=== PATIENT | female | born 1955 | race Caucasian/White ===

== ENCOUNTER 2016-07-14 06:58 | Emergency (ER) | payer OTHER ==
[~2016-07-14] VITALS: Ht 177.8 cm; Wt 80.0 kg
[~2016-07-14 06:58] MED LIST: DOXA1 PO; GALA12TA6 PO; MEMA5 PO; REME15TA PO; RISP1TAB2 PO; SYNT25TA PO
[2016-07-14 07:00] VITALS: BP 118/82; PULSE 86; RESP 16; TEMP 97.6
[2016-07-14] MEDS ORDERED: SODIUM CHLOR 0.9% 1000 ML INJ 1,000 ML IV SCH (07:06)
--- NOTE | 2016-07-14 07:12 | PD ---
HPI Chief Complaint: Altered Mental Status Time Seen by Provider: 07:04 Travel History International Travel<30 days: No Contact w/Intl Traveler<30days: No Traveled to known affect area: No History of Present Illness HPI Patient is a 61-year-old female who presents to emergency room for altered mental status. As per EMS, patient has history of Alzheimer's dementia, patient did have a recent change in her medications as she recently had all her medications increased. Patient unable to provide history of present illness this time, she is only alert to person at this time. As per EMS, patient was not found to be acting herself and has been acting differently. No family at bedside at this time, is on his way to the ER. PFSH Past Medical History Alzheimer's Disease: Yes (stage 3) Arthritis: No Asthma: No Autoimmune Disease: No Blood Disorders: No Bipolar Disorder: Yes Anxiety: Yes Depression: Yes Heart Rhythm Problems: No Cancer: Yes (OVARIAN AND UTERUS) Cardiac Catheterization: No Cardiovascular Problems: No High Cholesterol: No Chemotherapy: No Congestive Heart Failure: No COPD: No Cerebrovascular Accident: No Dementia: Yes Diabetes: No Diminished Hearing: No GERD: Yes Glaucoma: No Hepatitis: No Hiatal Hernia: Yes Hypertension: Yes Kidney Stones: No Neurologic: Yes (RETROGRADE AMNESIA) Psychiatric: Yes Myocardial Infarction: No Radiation Therapy: No Renal Failure: No Seizures: Yes (LAST SEIZURE ) Sleep Apnea: No Ulcer: No Menopausal: Yes Past Surgical History AICD: No Cholecystectomy: Yes (DOESN'T KNOW DATE) Coronary Artery Bypass Graft: No Genitourinary Surgery: No Hysterectomy: Yes Pacemaker: No Other Surgery: No Social History Alcohol Use: No Tobacco Use: Yes (quit 1999) Substance Use: No Allergies-Medications (Allergen,Severity, Reaction): Coded Allergies: Coconut (Unverified Allergy, Severe, SWELLING OF THROAT, 12/05/14) Reported Meds & Prescriptions Reported Meds & Active Scripts Active Reported Trazodone (Trazodone HCl) 100 Mg Tab 200 Mg PO TID Tamsulosin (Tamsulosin HCl) 0.4 Mg Cap 0.4 Mg PO HS Olanzapine 10 Mg Tab 10 Mg PO HS Memantine 10 Mg Tab 10 Mg PO BID Levothyroxine (Levothyroxine Sodium) 150 Mcg Tab 150 Mcg PO DAILY Galantamine (Galantamine Hydrobromide) 12 Mg Tab 16 Mg PO BID D3-1000 (Cholecalciferol) 1,000 Unit Cap Carbamazepine 200 Mg Tab 200 Mg PO BID Buspirone (Buspirone HCl) 30 Mg Tab 30 Mg PO BID Review of Systems ROS Limitations: Altered Mental Status Physical Exam Exam Limitations: Altered Mental Status Narrative GENERAL: NAD SKIN: Focused skin assessment warm/dry. HEAD: Atraumatic. Normocephalic. EYES: Pupils equal and round. No scleral icterus. No injection or drainage. ENT: No nasal bleeding or discharge. Mucous membranes pink and moist. NECK: Trachea midline. No JVD. CARDIOVASCULAR: Regular rate and rhythm. No murmur appreciated. RESPIRATORY: No accessory muscle use. Clear to auscultation. Breath sounds equal bilaterally. GASTROINTESTINAL: Abdomen soft, non-tender, nondistended. Hepatic and splenic margins not palpable. MUSCULOSKELETAL: No obvious deformities. No clubbing. No cyanosis. No edema. NEUROLOGICAL: Awake and alert. Normal speech. PSYCHIATRIC: Patient confused, alert only to person Data Data Last Documented VS Vital Signs Date Time Temp Pulse Resp B/P Pulse Ox O2 Delivery O2 Flow Rate FiO2 07/14/16 07:05 97 Room Air 07/14/16 07:00 97.6 86 16 118/82 Orders Electrocardiogram (07/14/16 07:06) Complete Blood Count With Diff (07/14/16 07:06) Comprehensive Metabolic Panel (07/14/16 07:06) Creatine Kinase (Cpk) (07/14/16 07:06) Prothrombin Time / Inr (Pt) (07/14/16 07:06) Act Partial Throm Time (Ptt) (07/14/16 07:06) Troponin I (07/14/16 07:06) Urinalysis - C+S If Indicated (07/14/16 07:06) Chest, Single Ap (07/14/16 07:06) Blood Glucose (07/14/16 07:06) Ecg Monitoring (07/14/16 07:06) Iv Access Insert/Monitor (07/14/16 07:06) Cath For Specimen (07/14/16 07:06) Oximetry (07/14/16 07:06) Sodium Chloride 0.9% Flush (Ns Flush) (07/14/16 07:15) Sodium Chlor 0.9% 1000 Ml Inj (Ns 1000 M (07/14/16 07:06) Drug Screen, Random Urine (07/14/16 07:06) Lorazepam (Ativan) (07/14/16 07:45) Labs Laboratory Tests Test 07/14/16 07:15 White Blood Count 5.3 TH/MM3 Red Blood Count 4.09 MIL/MM3 Hemoglobin 12.4 GM/DL Hematocrit 35.9 % Mean Corpuscular Volume 87.8 FL Mean Corpuscular Hemoglobin 30.3 PG Mean Corpuscular Hemoglobin 34.5 % Concent Red Cell Distribution Width 14.0 % Platelet Count 166 TH/MM3 Mean Platelet Volume 8.7 FL Neutrophils (%) (Auto) 76.1 % Lymphocytes (%) (Auto) 14.7 % Monocytes (%) (Auto) 7.8 % Eosinophils (%) (Auto) 0.8 % Basophils (%) (Auto) 0.6 % Neutrophils # (Auto) 4.1 TH/MM3 Lymphocytes # (Auto) 0.8 TH/MM3 Monocytes # (Auto) 0.4 TH/MM3 Eosinophils # (Auto) 0.0 TH/MM3 Basophils # (Auto) 0.0 TH/MM3 CBC Comment DIFF FINAL Differential Comment Prothrombin Time 10.6 SEC Prothromb Time International 1.0 RATIO Ratio Activated Partial 27.1 SEC Thromboplast Time Urine Color YELLOW Urine Turbidity CLEAR Urine pH 6.5 Urine Specific [place] 1.022 Urine Protein NEG mg/dL Urine Glucose (UA) NEG mg/dL Urine Ketones NEG mg/dL Urine Occult Blood NEG Urine Nitrite NEG Urine Bilirubin NEG Urine Urobilinogen LESS THAN 2.0 MG/DL Urine Leukocyte Esterase NEG Urine RBC 1 /hpf Urine WBC 1 /hpf Urine Squamous Epithelial 2 /hpf Cells Urine Mucus FEW /lpf Microscopic Urinalysis Comment CATH-CULT NOT IND Sodium Level 141 MEQ/L Potassium Level 3.4 MEQ/L Chloride Level 105 MEQ/L Carbon Dioxide Level 29.1 MEQ/L Anion Gap 7 MEQ/L Blood Urea Nitrogen 11 MG/DL Creatinine 0.93 MG/DL Estimat Glomerular Filtration 61 ML/MIN Rate Random Glucose 119 MG/DL Calcium Level 8.8 MG/DL Total Bilirubin 0.3 MG/DL Aspartate Amino Transf 11 U/L (AST/SGOT) Alanine Aminotransferase 26 U/L (ALT/SGPT) Alkaline Phosphatase 84 U/L Total Creatine Kinase 32 U/L Troponin I LESS THAN 0.02 NG/ML Total Protein 6.7 GM/DL Albumin 3.6 GM/DL Urine Opiates Screen NEG Urine Barbiturates Screen NEG Urine Amphetamines Screen NEG Urine Benzodiazepines Screen NEG Urine Cocaine Screen NEG Urine Cannabinoids Screen NEG MDM Medical Decision Making Medical Screen Exam Complete: Yes Emergency Medical Condition: Yes Interpretation(s) Vital Signs Date Time Temp Pulse Resp B/P Pulse Ox O2 Delivery O2 Flow Rate FiO2 07/14/16 07:05 97 Room Air 07/14/16 07:00 97.6 86 16 118/82 Differential Diagnosis Altered mental status could be secondary to electrolyte abnormality, infection including but not limited to UTI, pneumonia, ACS, intracranial pathology, progressing dementia Narrative Course Patient is a 61-year-old female who presents to emergency room for evaluation of altered mental status. Patient was brought to the emergency room by EMS from home, reports history of Alzheimer's dementia, reports that she has not been acting like her normal self for an unknown period of time. Patient unable to provide history of present illness this time. Vital signs are stable. Patient was placed on a cranberry sorter upon arrival to the emergency room. Labs as well as EKG ordered for evaluation of altered mental status. Plan to talk to patient's for more information once he arrives to the emergency room 0800: Patient's now at bedside, reports that she has stage III Alzheimer 's dementia which has been progressing since April. [facility], reports that after a trial of these medications, they did not have any effect on her. Reports that in mid June, all her medications [facility] by [facility]. Patient's is concerned as these medications have not helped her symptoms and patients agitation is not getting any better. Reports "she keeps clapping and hitting herself, I am just worried that the medicines aren't helping her." Patient's has considered assisted living and reports that "I just want her comfortable at home and I just want her to be safe." Reports that her progression of dementia is unchanged since April and patient is at her baseline mental status. Patient's reports "I'm just frustrated and need help calming her down." Vital Signs Date Time Temp Pulse Resp B/P Pulse Ox O2 Delivery O2 Flow Rate FiO2 07/14/16 07:05 97 Room Air 07/14/16 07:00 97.6 86 16 118/82 Last Impressions Chest X-Ray 07/14/16 0706 Signed Impressions: Service Date/Time: Thursday, July 14, 2016 07:21 - CONCLUSION: No acute disease. There is no evidence of free air. Rinku Bose MD CBC & BMP Diagram 07/14/16 07:15 Patient much calmer after Ativan administered. requests the patient be discharged to home under his care for the prescription for ativan as this seems to help calm her down. Patient will follow-up with her primary care doctor on Saturday, she will return to emergency room as needed Diagnosis Primary Impression: Dementia Additional Impression: Agitation Patient Instructions: General Instructions Additional Instructions: Please provide patient with a copy of her lab work at discharge Please call your primary care doctor first thing in the morning for earliest follow-up appointment Med/Other Pt SpecificInfo: Prescription(s) given Scripts Alprazolam (Xanax)0.5 Mg Tab0.5 Mg PO Q8H PRN (ANXIETY) #10 TAB Ref 0 Prov:Melissa Meza DO 07/14/16 Disposition: 01 DISCHARGE HOME Condition: Stable Melissa Meza DO July 14, 2016 07:12
[2016-07-14] MEDS ORDERED: SODIUM CHLORIDE 0.9% FLUSH 10 ML FLUSH IVF PRN (07:15)
--- NOTE | 2016-07-14 07:30 | RADRPT ---
EXAM DATE/TIME: 07/14/2016 07:21 [facility] COMPARISON: No previous studies available for comparison. INDICATIONS : Chest pain. MEDICAL HISTORY : Alzheimer's seizures. SURGICAL HISTORY : Hysterectomy. ENCOUNTER: Initial ACUITY: 1 day PAIN SCORE: Non-responsive. LOCATION: Bilateral chest FINDINGS: A single view of the chest demonstrates the lungs to be symmetrically aerated without evidence of mas s, infiltrate or effusion. The cardiomediastinal contours are unremarkable. Osseous structures are intact. There is no evidence of free air. The patient is mildly rotated. CONCLUSION: No acute disease. There is no evidence of free air. Rinku Bose MD on July 14, 2016 at 7:28 Board Certified Radiologist. This report was verified electronically.
[2016-07-14 07:39] LABS: AUTOMATED NEUTROPHIL # 4.1 TH/MM3 (1.8-7.7); BASOPHIL % 0.6 % (0.0-2.0); EOSINOPHIL % 0.8 % (0.0-4.0); HEMATOCRIT 35.9 % (35.0-46.0); HEMO FLAGS DIFF FINAL; LYMPH % 14.7 % (9.0-44.0); LYMPHOCYTE # 0.8 TH/MM3 (1.0-4.8); MEAN CELL VOLUME 87.8 FL (80.0-100.0); MEAN CORPUSCULAR HEMOGLOBIN 30.3 PG (27.0-34.0); MEAN CORPUSCULAR HGB CONC 34.5 % (32.0-36.0); MONO % 7.8 % (0.0-8.0); NEUT % 76.1 % (16.0-70.0); PLATELET COUNT 166 TH/MM3 (150-450); RED BLOOD COUNT 4.09 MIL/MM3 (4.00-5.30); WHITE BLOOD COUNT 5.3 TH/MM3 (4.0-11.0)
[2016-07-14] MEDS ORDERED: LORazepam 1 MG TAB PO ONE (07:45)
[2016-07-14 07:49] LABS: APTT (PATIENT) 27.1 SEC (24.3-30.1); PROTHROMBIN TIME - PATIENT 10.6 SEC (9.8-11.6)
[2016-07-14 07:52] LABS: ALT (GPT) 26 U/L (10-53); ANION GAP 7 MEQ/L (5-15); AST (GOT) 11 U/L (15-37); BICARBONATE 29.1 MEQ/L (21.0-32.0); BLOOD UREA NITROGEN 11 MG/DL (7-18); BLOOD, URINE NEG (NEG); CHLORIDE 105 MEQ/L (98-107); COMMENT (UR) CATH-CULT NOT IND; CULTURE IF INDICATED CATH CULTURE NOT IND; GLOMERULAR FILTRATION RATE 61 ML/MIN (>89); GLUCOSE,URINE NEG (NEG); KETONE, URINE NEG (NEG); MUCUS URINE FEW /lpf (OCC); NITRITE,URINE NEG (NEG); PH, URINE 6.5 (5.0-8.5); POTASSIUM 3.4 MEQ/L (3.5-5.1); SODIUM (NA) 141 MEQ/L (136-145); SQUAMOUS EPITHELIAL CELL URINE 2 /hpf (0-5); URINE COLOR YELLOW (YELLW/STRAW)
[2016-07-14 08:07] LABS: ALKALINE PHOSPHATASE 84 U/L (45-117); TOTAL BILIRUBIN ADULT 0.3 MG/DL (0.2-1.0)
[2016-07-14 08:09] LABS: CREATINE KINASE 32 U/L (26-192)
[2016-07-14] MEDS ORDERED: OLAN10TA PO (08:09)
[2016-07-14] MEDS ORDERED: CHOL1CAP32 (08:09)
[2016-07-14] MEDS ORDERED: BUSP30TA PO (08:09)
[2016-07-14] MEDS ORDERED: CARB200T PO (08:09)
[2016-07-14] MEDS ORDERED: TAMS0.4C4 PO (08:09)
[2016-07-14] MEDS ORDERED: TRAZ100T4 PO (08:09)
[2016-07-14] MEDS ORDERED: MEMA1TAB2 PO (08:09)
[2016-07-14] MEDS ORDERED: GALA12TA PO (08:09)
[2016-07-14] MEDS ORDERED: LEVO150T7 PO (08:09)
[2016-07-14 08:26] LABS: AMPHETAMINE, URINE NEG (NEG); BARBITURATES, URINE NEG (NEG); COCAINE, URINE NEG (NEG)
[2016-07-14] MEDS ORDERED: ALPR.5 PO (09:18)
[2016-07-14 09:42] VITALS: BP 115/61; PULSE 80; RESP 16
== END 2016-07-14 09:44 | disposition home or self-care (01) ==
LOC: NEPE 06:58
DX: G30.9 Alzheimer's disease, unspecified (principal); F02.81 Dementia in other diseases classified elsewhere, unspecified severity, with behavioral disturbance; I10 Essential (primary) hypertension; R07.9 Chest pain, unspecified; Z79.899 Other long term (current) drug therapy; Z87.891 Personal history of nicotine dependence
CPT/HCPCS: 71010; 80053; 80307; 81001; 82550; 84484; 85025; 85610; 85730; 99285; J7030; P9612

== ENCOUNTER 2016-07-16 15:36 | Inpatient (IN) | payer OTHER ==
[~2016-07-16] VITALS: Ht 185.4 cm; Wt 73.4 kg
[~2016-07-16 15:36] MED LIST changes: +ALPR.5 PO; +BUSP30TA PO; +CARB200T PO; +CHOL1CAP32; -DOXA1 PO; +GALA12TA PO; -GALA12TA6 PO; +LEVO150T7 PO; +MEMA1TAB2 PO; -MEMA5 PO; +OLAN10TA PO; -REME15TA PO; -RISP1TAB2 PO; -SYNT25TA PO; +TAMS0.4C4 PO; +TRAZ100T4 PO
[2016-07-16 15:40] VITALS: BP 166/100; PULSE 90; RESP 18; TEMP 98.6; O2SAT 98
--- NOTE | 2016-07-16 15:55 | PD ---
HPI Chief Complaint: altered mental status Time Seen by Provider: 15:48 Travel History International Travel<30 days: No Contact w/Intl Traveler<30days: No Traveled to known affect area: No History of Present Illness HPI The patient is a 61-year-old female who presents to the emergency department via EMS as a Mclean act. The patient apparently has a history of dementia with progressive symptoms over the last several months. The patient was evaluated in the emergency department several days ago where she had a liver in workup which was negative. The patient is currently on multiple dementia and antipsychotic medications including Donepezil, Memantine, mirtazapine, and Seroquel. According to the Mclean act the patient has been increasingly agitated and striking herself, appears to be a threat to herself. The patient currently lives at home with her who appears unable to take care of the patient secondary to her increasing dementia. Upon arrival the patient will follow commands, is oriented to person, but cannot answer other questions are provide any insight to her current situation. PFSH Past Medical History Alzheimer's Disease: Yes (stage 3) Arthritis: No Asthma: No Autoimmune Disease: No Blood Disorders: No Bipolar Disorder: Yes Anxiety: Yes Depression: Yes Heart Rhythm Problems: No Cancer: Yes (OVARIAN AND UTERUS) Cardiac Catheterization: No Cardiovascular Problems: No High Cholesterol: No Chemotherapy: No Congestive Heart Failure: No COPD: No Cerebrovascular Accident: No Dementia: Yes Diabetes: No Diminished Hearing: No GERD: Yes Glaucoma: No Hepatitis: No Hiatal Hernia: Yes Hypertension: Yes Kidney Stones: No Neurologic: Yes (RETROGRADE AMNESIA) Psychiatric: Yes Myocardial Infarction: No Radiation Therapy: No Renal Failure: No Seizures: Yes (LAST SEIZURE ) Sleep Apnea: No Ulcer: No Menopausal: Yes Past Surgical History AICD: No Cholecystectomy: Yes (DOESN'T KNOW DATE) Coronary Artery Bypass Graft: No Genitourinary Surgery: No Hysterectomy: Yes Pacemaker: No Other Surgery: No Social History Tobacco Use: No Allergies-Medications (Allergen,Severity, Reaction): Coded Allergies: Coconut (Unverified Allergy, Severe, SWELLING OF THROAT, 07/16/16) Reported Meds & Prescriptions Reported Meds & Active Scripts Active Cipro (Ciprofloxacin HCl) 500 Mg Tab 500 Mg PO BID 7 Days Xanax (Alprazolam) 0.5 Mg Tab 0.5 Mg PO Q8H PRN Reported Trazodone (Trazodone HCl) 100 Mg Tab 200 Mg PO TID Tamsulosin (Tamsulosin HCl) 0.4 Mg Cap 0.4 Mg PO HS Olanzapine 10 Mg Tab 10 Mg PO HS Memantine 10 Mg Tab 10 Mg PO BID Levothyroxine (Levothyroxine Sodium) 150 Mcg Tab 150 Mcg PO DAILY Galantamine (Galantamine Hydrobromide) 12 Mg Tab 16 Mg PO BID D3-1000 (Cholecalciferol) 1,000 Unit Cap Carbamazepine 200 Mg Tab 200 Mg PO BID Buspirone (Buspirone HCl) 30 Mg Tab 30 Mg PO BID Review of Systems ROS Limitations: Altered Mental Status, Poor Historian Except as stated in HPI: all other systems reviewed are Neg Neurologic: Positive: Change in Mentation Physical Exam Exam Limitations: Altered Mental Status Narrative GENERAL: Awake, alert, 61-year-old female who appears her stated age and is in no acute respiratory distress. SKIN: Focused skin assessment warm/dry. HEAD: Atraumatic. Normocephalic. EYES: Pupils equal and round. Pupils are 4 mm bilateral and reactive. ENT: No nasal bleeding or discharge. Mucous membranes pink and moist. NECK: Trachea midline. No JVD. CARDIOVASCULAR: Regular rate and rhythm. No murmur appreciated. RESPIRATORY: No accessory muscle use. Clear to auscultation. Breath sounds equal bilaterally. GASTROINTESTINAL: Abdomen soft, non-tender, nondistended. No rebound tenderness. MUSCULOSKELETAL: No obvious deformities. No clubbing. No cyanosis. No edema. NEUROLOGICAL: Awake and alert. No obvious cranial nerve deficits. Moves all 4 extremities. Oriented to person but cannot answer other questions or provide any insight. Will follow simple commands. PSYCHIATRIC: Appears demented. Data Data Last Documented VS Vital Signs Date Time Temp Pulse Resp B/P Pulse Ox O2 Delivery O2 Flow Rate FiO2 07/16/16 17:59 82 18 121/59 98 Room Air 07/16/16 15:40 98.6 Orders Complete Blood Count With Diff (07/16/16 15:48) Comprehensive Metabolic Panel (07/16/16 15:48) Thyroid Stimulating Hormone (07/16/16 15:48) Urinalysis - C+S If Indicated (07/16/16 15:48) Psych Screen (07/16/16 15:48) Lorazepam Inj (Ativan Inj) (07/16/16 16:00) Drug Screen, Random Urine (07/16/16 15:48) Alcohol (Ethanol) (07/16/16 15:48) Ct Brain W/O Iv Contrast(Rout) (07/16/16 ) Sodium Chlorid 0.9% 500 Ml Inj (Ns 500 M (07/16/16 16:00) Urine Culture (07/16/16 16:15) Ciprofloxacin 400 Mg Premix (Cipro 400 M (07/16/16 17:45) Carbamazepine (Tegretol) (07/16/16 17:39) Labs Laboratory Tests Test 07/16/16 16:15 White Blood Count 9.0 TH/MM3 Red Blood Count 4.28 MIL/MM3 Hemoglobin 12.7 GM/DL Hematocrit 37.3 % Mean Corpuscular Volume 87.3 FL Mean Corpuscular Hemoglobin 29.7 PG Mean Corpuscular Hemoglobin 34.0 % Concent Red Cell Distribution Width 13.9 % Platelet Count 208 TH/MM3 Mean Platelet Volume 9.3 FL Neutrophils (%) (Auto) 70.0 % Lymphocytes (%) (Auto) 20.1 % Monocytes (%) (Auto) 8.6 % Eosinophils (%) (Auto) 0.5 % Basophils (%) (Auto) 0.8 % Neutrophils # (Auto) 6.3 TH/MM3 Lymphocytes # (Auto) 1.8 TH/MM3 Monocytes # (Auto) 0.8 TH/MM3 Eosinophils # (Auto) 0.0 TH/MM3 Basophils # (Auto) 0.1 TH/MM3 CBC Comment DIFF FINAL Differential Comment Urine Color YELLOW Urine Turbidity HAZY Urine pH 6.0 Urine Specific [place] 1.028 Urine Protein TRACE mg/dL Urine Glucose (UA) NEG mg/dL Urine Ketones NEG mg/dL Urine Occult Blood NEG Urine Nitrite NEG Urine Bilirubin NEG Urine Urobilinogen LESS THAN 2.0 MG/DL Urine Leukocyte Esterase LARGE Urine RBC 5 /hpf Urine WBC 44 /hpf Urine Squamous Epithelial 1 /hpf Cells Urine Bacteria OCC /hpf Microscopic Urinalysis Comment CULTURE INDICATED Sodium Level 144 MEQ/L Potassium Level 4.1 MEQ/L Chloride Level 107 MEQ/L Carbon Dioxide Level 30.0 MEQ/L Anion Gap 7 MEQ/L Blood Urea Nitrogen 14 MG/DL Creatinine 1.02 MG/DL Estimat Glomerular Filtration 55 ML/MIN Rate Random Glucose 105 MG/DL Calcium Level 9.2 MG/DL Total Bilirubin 0.4 MG/DL Aspartate Amino Transf 34 U/L (AST/SGOT) Alanine Aminotransferase 58 U/L (ALT/SGPT) Alkaline Phosphatase 99 U/L Total Protein 7.2 GM/DL Albumin 4.1 GM/DL Thyroid Stimulating Hormone 2.940 uIU/ML 3rd Gen Urine Opiates Screen NEG Urine Barbiturates Screen NEG Carbamazepine (Tegretol) Level 9.4 MCG/ML Urine Amphetamines Screen NEG Urine Benzodiazepines Screen POS Urine Cocaine Screen NEG Urine Cannabinoids Screen NEG Ethyl Alcohol Level LESS THAN 3 MG/DL MDM Medical Decision Making Medical Screen Exam Complete: Yes Emergency Medical Condition: Yes Medical Record Reviewed: Yes Interpretation(s) Last Impressions Head CT 07/16/16 0000 Signed Impressions: Service Date/Time: Saturday, July 16, 2016 17:37 - CONCLUSION: Generalized atrophy advanced for age. Stable evaluation without evidence of acute infarct, hemorrhage, mass or edema. Fredy Rhodes MD Laboratory Tests Test 07/16/16 16:15 White Blood Count 9.0 TH/MM3 Red Blood Count 4.28 MIL/MM3 Hemoglobin 12.7 GM/DL Hematocrit 37.3 % Mean Corpuscular Volume 87.3 FL Mean Corpuscular Hemoglobin 29.7 PG Mean Corpuscular Hemoglobin 34.0 % Concent Red Cell Distribution Width 13.9 % Platelet Count 208 TH/MM3 Mean Platelet Volume 9.3 FL Neutrophils (%) (Auto) 70.0 % Lymphocytes (%) (Auto) 20.1 % Monocytes (%) (Auto) 8.6 % Eosinophils (%) (Auto) 0.5 % Basophils (%) (Auto) 0.8 % Neutrophils # (Auto) 6.3 TH/MM3 Lymphocytes # (Auto) 1.8 TH/MM3 Monocytes # (Auto) 0.8 TH/MM3 Eosinophils # (Auto) 0.0 TH/MM3 Basophils # (Auto) 0.1 TH/MM3 CBC Comment DIFF FINAL Differential Comment Urine Color YELLOW Urine Turbidity HAZY Urine pH 6.0 Urine Specific [place] 1.028 Urine Protein TRACE mg/dL Urine Glucose (UA) NEG mg/dL Urine Ketones NEG mg/dL Urine Occult Blood NEG Urine Nitrite NEG Urine Bilirubin NEG Urine Urobilinogen LESS THAN 2.0 MG/DL Urine Leukocyte Esterase LARGE Urine RBC 5 /hpf Urine WBC 44 /hpf Urine Squamous Epithelial 1 /hpf Cells Urine Bacteria OCC /hpf Microscopic Urinalysis Comment CULTURE INDICATED Sodium Level 144 MEQ/L Potassium Level 4.1 MEQ/L Chloride Level 107 MEQ/L Carbon Dioxide Level 30.0 MEQ/L Anion Gap 7 MEQ/L Blood Urea Nitrogen 14 MG/DL Creatinine 1.02 MG/DL Estimat Glomerular Filtration 55 ML/MIN Rate Random Glucose 105 MG/DL Calcium Level 9.2 MG/DL Total Bilirubin 0.4 MG/DL Aspartate Amino Transf 34 U/L (AST/SGOT) Alanine Aminotransferase 58 U/L (ALT/SGPT) Alkaline Phosphatase 99 U/L Total Protein 7.2 GM/DL Albumin 4.1 GM/DL Thyroid Stimulating Hormone 2.940 uIU/ML 3rd Gen Ethyl Alcohol Level LESS THAN 3 MG/DL Differential Diagnosis Differential diagnosis includes advancing dementia, Alzheimer's, delirium, UTI, dehydration, subdural hemorrhage, normal pressure hydrocephalus, B-12 deficiency , heavy metal toxicity, hyponatremia, hypercalcemia. Narrative Course IV was established, labs are drawn and sent, and the patient was placed on cardiac telemetry monitoring and continuous pulse oximetry monitoring. I reviewed the patient's workup from several days ago she had a negative workup including CBC, CMP, and UA. I added a CT of the brain to rule out subdural hemorrhage. However, patient is nonfocal and I believe this may be secondary to advancing dementia with delirium, possibly secondary to medication side effects. CBC and CMP are unremarkable. UA is positive with 44 WBCs, therefore , patient was administered Cipro 400 mg intravenously. Patient will be prescribed Cipro 500 milligrams twice a day for [address] the brain reveals atrophy, no acute findings. Patient is medically cleared to be evaluated by psychiatry. Diagnosis Primary Impression: Dementia Qualified Code: F03.91 - Dementia with behavioral disturbance, unspecified dementia type Additional Impressions: UTI (urinary tract infection) Qualified Code: N39.0 - Urinary tract infection without hematuria, site unspecified Delirium Med/Other Pt SpecificInfo: Prescription(s) given Scripts Ciprofloxacin (Cipro)500 Mg Gmc709 Mg PO BID 7 Days Ref 0 Prov:Blue Ko MD 07/16/16 Condition: Stable Blue Ko MD July 16, 2016 15:55
[2016-07-16] MEDS ORDERED: SODIUM CHLORID 0.9% 500 ML INJ 500 ML IV ONE (16:00)
[2016-07-16] MEDS ORDERED: LORazepam 2 MG/ML VIAL IV ONE (16:00)
[2016-07-16 16:54] LABS: AUTOMATED NEUTROPHIL # 6.3 TH/MM3 (1.8-7.7); BASOPHIL # 0.1 TH/MM3 (0-0.2); BASOPHIL % 0.8 % (0.0-2.0); EOSINOPHIL % 0.5 % (0.0-4.0); HEMATOCRIT 37.3 % (35.0-46.0); HEMO FLAGS DIFF FINAL; LYMPH % 20.1 % (9.0-44.0); LYMPHOCYTE # 1.8 TH/MM3 (1.0-4.8); MEAN CELL VOLUME 87.3 FL (80.0-100.0); MEAN CORPUSCULAR HEMOGLOBIN 29.7 PG (27.0-34.0); MONO % 8.6 % (0.0-8.0); PLATELET COUNT 208 TH/MM3 (150-450); RED BLOOD COUNT 4.28 MIL/MM3 (4.00-5.30); RED CELL DISTRIBUTION WIDTH 13.9 % (11.6-17.2)
[2016-07-16 17:03] LABS: BACTERIA, URINE OCC /hpf; BLOOD, URINE NEG (NEG); COMMENT (UR) CULTURE INDICATED; CULTURE IF INDICATED CULTURE INDICATED; GLUCOSE,URINE NEG (NEG); KETONE, URINE NEG (NEG); NITRITE,URINE NEG (NEG); SQUAMOUS EPITHELIAL CELL URINE 1 /hpf (0-5); URINE COLOR YELLOW (YELLW/STRAW)
[2016-07-16 17:35] LABS: ALKALINE PHOSPHATASE 99 U/L (45-117); ALT (GPT) 58 U/L (10-53); ANION GAP 7 MEQ/L (5-15); AST (GOT) 34 U/L (15-37); BLOOD UREA NITROGEN 14 MG/DL (7-18); CHLORIDE 107 MEQ/L (98-107); GLOMERULAR FILTRATION RATE 55 ML/MIN (>89); POTASSIUM 4.1 MEQ/L (3.5-5.1); SODIUM (NA) 144 MEQ/L (136-145); TOTAL BILIRUBIN ADULT 0.4 MG/DL (0.2-1.0)
[2016-07-16] MEDS ORDERED: CIPR-9 PO (17:39)
[2016-07-16] MEDS ORDERED: CIPROFLOXACIN 400 MG PREMIX 200 ML IV ONE (17:45)
[2016-07-16 17:46] LABS: AMPHETAMINE, URINE NEG (NEG); BARBITURATES, URINE NEG (NEG); COCAINE, URINE NEG (NEG)
[2016-07-16 17:59] VITALS: BP 121/59; PULSE 82; RESP 18; O2SAT 98
--- NOTE | 2016-07-16 18:07 | RADRPT ---
EXAM DATE/TIME: 07/16/2016 17:37 [facility] COMPARISON: CT BRAIN W/O CONTRAST, December 05, 2014, 19:00. INDICATIONS : Altered mental status RADIATION DOSE: 56.35 CTDIvol (mGy) MEDICAL HISTORY : Dementia. Seizures. Hypertension.Renal disease uterin ca SURGICAL HISTORY : Cholecystectomy. Hysterectomy. ENCOUNTER: Initial ACUITY: 1 day PAIN SCALE: Non-responsive LOCATION: cranial TECHNIQUE: Multiple contiguous axial images were obtained of the head. Using automated exposure control and adj ustment of the mA and/or kV according to patient size, radiation dose was kept as low as reasonably a chievable to obtain optimal diagnostic quality images. FINDINGS: There is marked central and cortical atrophy with dilatation of ventricular and sulcal spaces. There is no parenchymal hemorrhage, acute infarction or mass lesion identified. There are no extra-axial fluid collections appreciated. The posterior fossa is unremarkable with midline fourth ventricle. T he portion of the orbits and paranasal sinuses visualized are unremarkable. CONCLUSION: Generalized atrophy advanced for age. Stable evaluation without evidence of acute infarct, hemorrhage, mass or edema. Fredy Rhodes MD on July 16, 2016 at 18:04 Board Certified Radiologist. This report was verified electronically.
[2016-07-17] MEDS ORDERED: MAGNESIUM HYDROXIDE SUSP 30 ML CUP PO PRN (09:00)
[2016-07-17] MEDS ORDERED: ACETAMINOPHEN 325 MG TAB PO PRN (09:00)
[2016-07-17] MEDS ORDERED: ALUMINUM/MAGNESIUM/SIMETH 30 ML CUP PO PRN (09:00)
[2016-07-17] MEDS ORDERED: LORazepam 2 MG/ML VIAL IM PRN ×2 (09:00)
[2016-07-17] MEDS ORDERED: LORazepam 0.5 MG TAB PO PRN (09:00)
[2016-07-17] MEDS: REMOVE OLD PATCH T-DERMAL SCH (10:00)
[2016-07-17] MEDS: NICOTINE 21 MG/24 HR PATCH T-DERMAL SCH (10:00)
--- NOTE | 2016-07-17 11:22 | PD.CONS ---
HPI Service [facility] Consult Requested By Psychiatry, Dr. Montemayor Reason for Consult Medical management Primary Care Physician [facility] Diagnoses: History of Present Illness Patient is a 61-year-old female with primary medical history of Alzheimer's disease stage III, bipolar disorder, anxiety, depression, dementia, seizure disorder, retrograde amnesia, hypothyroidism, hiatal hernia, GERD who came into the hospital for altered mental status. As per review of records, patient's medications has been changed increase. As per record, [facility] has been [facility], reports that after a trial of these medications, they did not have any effect on her. Reports that in mid June, all her medications were increased by the [place]. Patient's is concerned as these medications have not helped her symptoms and patients agitation is not getting any better. Reports "she keeps clapping and hitting herself, I am just worried that the medicines aren't helping her." Patient's has considered assisted living and reports that "I just want her comfortable at home and I just want her to be safe." Reports that her progression of dementia is unchanged since April and patient is at her baseline mental status. Patient's reports "I'm just frustrated and need help calming her down." Patient seen and examined today. Confuse, unable to make intelligible conversations. Unable to obtain any medical history or surgical history. All history or based on chart review. Patient is restless during exam, clapping and screaming at the same time. Review of Systems ROS Limitations: Altered Mental Status, Poor Historian Past Family Social History Allergies: Coded Allergies: Coconut (Unverified Allergy, Severe, SWELLING OF THROAT, 07/16/16) Past Medical History Chart reviewed Ovarian uterine cancer HTN Dementia Alzheimer's stageIII Retrograde amnesia Seizure Anxiety Depression Bipolar disorder Hiatal hernia GERD Hypothyroidism Past Surgical History Chart reviewed Cholecystectomy Hysterectomy Reported Medications Reported Meds & Active Scripts Active Cipro (Ciprofloxacin HCl) 500 Mg Tab 500 Mg PO BID 7 Days Xanax (Alprazolam) 0.5 Mg Tab 0.5 Mg PO Q8H PRN Reported Trazodone (Trazodone HCl) 100 Mg Tab 200 Mg PO TID Tamsulosin (Tamsulosin HCl) 0.4 Mg Cap 0.4 Mg PO HS Olanzapine 10 Mg Tab 10 Mg PO HS Memantine 10 Mg Tab 10 Mg PO BID Levothyroxine (Levothyroxine Sodium) 150 Mcg Tab 150 Mcg PO DAILY Galantamine (Galantamine Hydrobromide) 12 Mg Tab 16 Mg PO BID D3-1000 (Cholecalciferol) 1,000 Unit Cap Carbamazepine 200 Mg Tab 200 Mg PO BID Buspirone (Buspirone HCl) 30 Mg Tab 30 Mg PO BID Active Ordered Medications Current Medications Medications (Trade) Dose Ordered Sig/Ricardo Route Start Time Stop Time Status Last Admin (Ativan) 1 mg Q6H PRN PO 07/17/16 09:00 (Ativan Inj) 1 mg Q6H PRN IM 07/17/16 09:00 (Tylenol) 650 mg Q4H PRN PO 07/17/16 09:00 (Milk Of Magnesia Liq) 30 ml DAILY PRN PO 07/17/16 09:00 (Mag-Al Plus Susp Liq) 30 ml Q6H PRN PO 07/17/16 09:00 (Habitrol 21 Mg Patch.24 Hr) 1 patch DAILY T-DERMAL 07/17/16 10:00 Miscellaneous Information 1 DAILY T-DERMAL 07/17/16 10:00 Family History Unable to obtain family medical history Social History Based on chart review Lives with No alcohol use Former smoker, quit in year 1999 No substance abuse Physical Exam Vital Signs Vital Signs Date Time Temp Pulse Resp B/P Pulse Ox O2 Delivery O2 Flow Rate FiO2 07/16/16 17:59 82 18 121/59 98 Room Air 07/16/16 15:40 98.6 90 18 166/100 98 Physical Exam GENERAL: This is a well-nourished, well-developed patient, in no apparent distress. SKIN: No rashes, ecchymoses or lesions. Warm and dry HEAD: Normocephalic. EYES: Pupils equal round and reactive. No scleral icterus. No injection or drainage. ENT: Nose without bleeding. Throat without erythema. Uvula midline. Airway patent. NECK: Trachea midline. No JVD or lymphadenopathy. CARDIOVASCULAR: Regular rate and rhythm without murmurs, gallops, or rubs. RESPIRATORY: Clear to auscultation. Breath sounds equal bilaterally. No wheezes , rales, or rhonchi. GASTROINTESTINAL: Abdomen soft, non-tender, nondistended. Bowel sounds active 4 MUSCULOSKELETAL: Extremities without clubbing, cyanosis, bilateral lower extremity trace edema. NEUROLOGICAL: Awake and alert. Confuse, oriented to self only. Motor and sensory grossly within normal limits. Normal speech. Laboratory Laboratory Tests Test 07/16/16 16:15 White Blood Count 9.0 Red Blood Count 4.28 Hemoglobin 12.7 Hematocrit 37.3 Mean Corpuscular Volume 87.3 Mean Corpuscular Hemoglobin 29.7 Mean Corpuscular Hemoglobin 34.0 Concent Red Cell Distribution Width 13.9 Platelet Count 208 Mean Platelet Volume 9.3 Neutrophils (%) (Auto) 70.0 Lymphocytes (%) (Auto) 20.1 Monocytes (%) (Auto) 8.6 Eosinophils (%) (Auto) 0.5 Basophils (%) (Auto) 0.8 Neutrophils # (Auto) 6.3 Lymphocytes # (Auto) 1.8 Monocytes # (Auto) 0.8 Eosinophils # (Auto) 0.0 Basophils # (Auto) 0.1 CBC Comment DIFF FINAL Differential Comment Urine Color YELLOW Urine Turbidity HAZY Urine pH 6.0 Urine Specific [place] 1.028 Urine Protein TRACE Urine Glucose (UA) NEG Urine Ketones NEG Urine Occult Blood NEG Urine Nitrite NEG Urine Bilirubin NEG Urine Urobilinogen LESS THAN 2.0 Urine Leukocyte Esterase LARGE Urine RBC 5 Urine WBC 44 Urine Squamous Epithelial 1 Cells Urine Bacteria OCC Microscopic Urinalysis Comment CULTURE INDICATED Sodium Level 144 Potassium Level 4.1 Chloride Level 107 Carbon Dioxide Level 30.0 Anion Gap 7 Blood Urea Nitrogen 14 Creatinine 1.02 Estimat Glomerular Filtration 55 Rate Random Glucose 105 Calcium Level 9.2 Total Bilirubin 0.4 Aspartate Amino Transf 34 (AST/SGOT) Alanine Aminotransferase 58 (ALT/SGPT) Alkaline Phosphatase 99 Total Protein 7.2 Albumin 4.1 Thyroid Stimulating Hormone 2.940 3rd Gen Urine Opiates Screen NEG Urine Barbiturates Screen NEG Carbamazepine (Tegretol) Level 9.4 Urine Amphetamines Screen NEG Urine Benzodiazepines Screen POS Urine Cocaine Screen NEG Urine Cannabinoids Screen NEG Ethyl Alcohol Level LESS THAN 3 Date/Time Procedure Status Source Growth 07/16/16 16:15 Urine Culture Worksheet Urine Clean Catch Pending Result Diagram: 07/16/16 1615 07/16/16 1615 Assessment and Plan Problem List: (1) Delirium ICD Code: R41.0 Status: Acute (2) UTI (urinary tract infection) ICD Code: N39.0 Status: Acute (3) Dementia ICD Code: F03.90 Status: Acute Assessment and Plan Patient is a 61-year-old female with primary medical history of Alzheimer's disease stage III, bipolar disorder, anxiety, depression, dementia, seizure disorder, retrograde amnesia, hypothyroidism, hiatal hernia, GERD who came into the hospital for altered mental status. As per review of records, patient's medications has been changed increase. Alzheimer's stage III, dementia with behavioral disturbances - managed by psychiatry - Spoke with case management, patient may benefit with discharge to assisted living if unable to control behavioral disturbance Urinary tract infection, possibly gram-negative rods - No Leukocytosis - Given Cipro IV in the ED, will continue Cipro by mouth LORRAINE on CKD 3 - Since 2006 creatinine has been 0.97 to 1.19 - Avoid nephrotoxins - Monitor BMP Hypothyroidism - Restart home medication levothyroxine 150 g - TSH checked within normal 2.940 DVT prop ambulation Thank you for this consultation. We will follow patient with you. Code Status Full Code Discussed Condition With Patient, nursing Problem Qualifiers (1) UTI (urinary tract infection): Qualified Code: N39.0 - Urinary tract infection without hematuria, site unspecified (2) Dementia: Qualified Code: F03.91 - Dementia with behavioral disturbance, unspecified dementia type Kadi Foster July 17, 2016 11:22
[2016-07-17] MEDS: CIPROFLOXACIN 250 MG TAB PO SCH ×2 (13:30→21:19)
[2016-07-17] MEDS: MEMANTINE HCL 10 MG TAB PO SCH ×2 (13:45→21:04)
[2016-07-17] MEDS ORDERED: CIPROFLOXACIN 500 MG TAB PO SCH (13:45)
--- NOTE | 2016-07-17 14:13 | HHI.HP ---
Provisional Diagnosis Admission Date July 17, 2016 at 08:49 [place] I. Dementia with behavioral disturbances [place] II. Deferred [place] III. UTI, hypothyroidism [place] IV. Increased agitation [place] V. 35 Certification of Person's Competence To Provide Express and Informed Consent I have personally examined Kati Simeon , a person being served at [facility] on, July 17, 2016 13:58. Express and informed consent means consent voluntarily given in writing, by a competent person, after sufficient explanation and disclosure of the subject matter involved to enable the person to make a knowing and willful decision without any element of force, fraud, deceit, duress, or other form of constraint or coercion. This person is 18 years of age or older, is not now known to be incompetent to consent to treatment with a guardian advocate, and does not have a health care surrogate or proxy currently making medical treatment decisions. I have found this person to be one of the following: [] Competent to provide express and informed consent, as defined above, for voluntary admission to this facility and is competent to provide express and informed consent for treatment. He/she has the consistent capacity to make well reasoned, willful, and knowing decisions concerning his or her medical or mental health treatment. The person fully and consistently understands the purpose of the admission for examination/placement and is fully capable of personally exercising all rights [place] [x] Incompetent to provide express and informed consent to voluntary admission, and this is incompetent to provide express and informed consent to treatment. The person must be transferred to involuntary status and a petition for a guardian advocate filed with the Circuit Court. [] Refusing to provide express and informed consent to voluntary admission but is competent to provide express and informed consent for treatment. The person must be discharged or transferred to involuntary status. Form shall be completed within 24 hours of a person's arrival at the receiving facility and filed in the clinical record of each person: 1. Admitted on a voluntary basis 2. Permitted to provide express and informed consent to his/her own treatment 3. Allowed to transfer from involuntary to voluntary status 4. Prior to permitting a person to consent to his or her own treatment after having been previously found incompetent to consent to treatment. History of Present Illness Capacity: Lacks Capacity HPI The patient is a 61-year-old woman, domicile with her , with psychiatric history of early onset dementia, no previous psychiatric hospitalizations, no previous suicidal attempts, she is on olanzapine 10 mg, trazodone 200 mg, Tegretol 200 mg, Namenda 10 mg, Aricept 10 mg, medical history hypothyroidism, who presents to the emergency department via EMS as a Mclean act. The patient apparently has a history of dementia with progressive symptoms over the last several months. The patient was evaluated in the emergency department several days ago where she had a liver in workup which was negative. According to the Mclean act the patient has been increasingly agitated and striking herself, appears to be a threat to herself. On psychiatric evaluation patient is seen to be hyperactive, disorganized, perseveringly clapping her hands about every 1-2 minutes. Patient can follow simple commands, but is unable to sustain a conversation and answer questions. She doesn't provide any meaningful information for the psychiatric evaluation at this moment. However, her Mr. Darvin Simeon, states that the patient has been increasingly and progressively agitated to the point that he is very difficult to him to control her and take care of her. He says that she takes all her medications, but they do not seem to be enough. She is not aggressive, but restless, and continuously clapping her hands "sometimes I am afraid that she is going to hurt herself". Review of Systems Constitutional: DENIES: Diaphoretic episodes, Fatigue, Fever, Weight gain, Weight loss, Chills, Dizziness, Change in appetite, Night Sweats Endocrine: DENIES: Abnorml menstrual pattern, Heat/cold intolerance, Polydipsia , Polyuria, Polyphagia Eyes: DENIES: Blurred vision, Diplopia, Eye inflammation, Eye pain, Vision loss , Photosensitivity, Double Vision Respiratory: DENIES: Apneas, Cough, Snoring, Wheezing, Hemoptysis, Sputum production, Shortness of breath Cardiovascular: DENIES: Chest pain, Palpitations, Syncope, Dyspnea on Exertion , PND, Lower Extremity Edema, Orthopnea, Claudication Gastrointestinal: DENIES: Abdominal pain, Black stools, Bloody stools, Constipation, Diarrhea, Nausea, Vomiting, Difficulty Swallowing, Anorexia Genitourinary: DENIES: Abnormal vaginal bleeding, Dysmenorrhea, Dyspareunia, Sexual dysfunction, Urinary frequency, Urinary incontinence, Urgency, Hematuria , Dysuria, Nocturia, Vaginal discharge Musculoskeletal: DENIES: Joint pain, Muscle aches, Stiffness, Joint Swelling, Back pain, Neck pain Integumentary: DENIES: Abnormal pigmentation, Pruritus, Rash, Nail changes, Breast masses, Breast skin changes, Nipple discharge Hematologic/lymphatic: DENIES: Bruising, Lymphadenopathy Neurologic: DENIES: Abnormal gait, Headache, Localized weakness, Paresthesias, Seizures, Speech Problems, Tremor, Poor Balance Past Psych History Psychological trauma history denies Substance Abuse History Drugs/Alcohol past 12 months denies use of drugs or alcohol Past Family Social History Coded Allergies: Coconut (Unverified Allergy, Severe, SWELLING OF THROAT, 07/16/16) Active Scripts Ciprofloxacin (Cipro)500 Mg [id number] Mg PO BID 7 Days Ref 0 Prov:Blue Ko MD 07/16/16 Alprazolam (Xanax)0.5 Mg Tab0.5 Mg PO Q8H PRN (ANXIETY) #10 TAB Ref 0 Prov:Melissa Meza DO 07/14/16 Reported Medications Trazodone 100 Mg Qct253 Mg PO TID #90 TAB Ref 0 07/14/16 Tamsulosin 0.4 Mg Cap0.4 Mg PO HS #30 CAP Ref 0 07/14/16 Olanzapine 10 Mg Tab10 Mg PO HS #30 TAB Ref 0 07/14/16 Memantine 10 Mg Tab10 Mg PO BID Ref 0 07/14/16 Levothyroxine 150 Mcg [id number] Mcg PO DAILY #30 TAB Ref 0 07/14/16 Galantamine 12 Mg Tab16 Mg PO BID #60 TAB Ref 0 07/14/16 Cholecalciferol (D3-1000)1,000 Unit Cap 07/14/16 Buspirone 30 Mg Tab30 Mg PO BID Ref 0 07/14/16 Current Medications Medications (Trade) Dose Ordered Sig/Ricardo Route Start Time Stop Time Status Last Admin (Ativan) 1 mg Q6H PRN PO 07/17/16 09:00 (Ativan Inj) 1 mg Q6H PRN IM 07/17/16 09:00 (Tylenol) 650 mg Q4H PRN PO 07/17/16 09:00 (Milk Of Magnesia Liq) 30 ml DAILY PRN PO 07/17/16 09:00 (Mag-Al Plus Susp Liq) 30 ml Q6H PRN PO 07/17/16 09:00 (Habitrol 21 Mg Patch.24 Hr) 1 patch DAILY T-DERMAL 07/17/16 10:00 Miscellaneous Information 1 DAILY T-DERMAL 07/17/16 10:00 (Cipro) 250 mg Q12HR PO 07/17/16 13:30 07/22/16 13:29 (Flomax) 0.4 mg HS PO 07/17/16 21:00 (Synthroid) 150 mcg DAILY@0600 PO 07/18/16 06:00 (Cipro) 500 mg BID PO 07/17/16 13:45 UNV (Razadyne) 16 mg BID PO 07/17/16 13:45 UNV (Namenda) 10 mg BID PO 07/17/16 13:45 (ZyPREXA) 10 mg HS PO 07/17/16 21:00 (Desyrel) 200 mg TID PO 07/17/16 18:00 Family History No psychiatric family history Social History Patient was born and raised in [facility], she has 2 kids, she is , Patient's Strengths (min. 2) Excellent support Physical Exam Vital Signs Vital Signs Date Time Temp Pulse Resp B/P Pulse Ox O2 Delivery O2 Flow Rate FiO2 07/16/16 17:59 82 18 121/59 98 Room Air 07/16/16 15:40 98.6 Lab Results Patient has a mild UTI, oxycodone is positive for benzodiazepines Mental Status Examination Appearance woman age appearing, good hygiene, [facility], poorly cooperative, Speech: Other (patient is very reticent) Orientation: Person Memory: Impaired (describe) Thought Process: Thought Blocking Thought Content: Other (no formally assessed due to lack of communication) Hallucination Type: None Suicidal Ideation: No Previous Suicide Attempts: No Homicidal Ideation: No Insight: Poor Judgment: Poor Affect: Anxious Affect if Inappropriate: Blunt Mood: Anxious, Irritable Motor Activity: Normal gait Assessment & Plan Problem List: (1) Dementia Assessment & Plan: Patient has reported increased agitation, restlessness, disorganized behavior in the context of underlying dementia. Her has expressed fear of taking care of her and her safety. He says the patient has deteriorated significantly in the last weeks. Patient will be admitted in psychiatry for stabilization of symptoms. Would restart olanzapine 10 mg, trazodone 200 mg to help with behavioral control and to sleep. buffing line set up worker intervention for psychosocial assessment, individual counseling, group therapy. Appropriate safety measure in place. Extensive psychoeducation, supportive motivation provided to the patient and . ICD Code: F03.90 Assessment & Plan Estimated LOS: days Problem Qualifiers (1) Dementia: Qualified Code: F03.91 - Dementia with behavioral disturbance, unspecified dementia type German Ruvalcaba MD July 17, 2016 14:13
[2016-07-17] MEDS: GALANTAMINE HYDROBROMIDE 4 MG TAB PO SCH ×2 (14:15→21:04)
[2016-07-17] MEDS: traZODone HCL 100 MG TAB PO SCH (19:11)
[2016-07-17] MEDS ORDERED: OLANZapine 10 MG TAB PO SCH (21:00)
[2016-07-17] MEDS: TAMSULOSIN HCL 0.4 MG CAP PO SCH (21:04)
[2016-07-18] MEDS: LEVOTHYROXINE SODIUM 150 MCG TAB PO SCH (05:40)
[2016-07-18 05:55] VITALS: BP 118/66; PULSE 73; RESP 18; TEMP 97.1
[2016-07-18] MEDS ORDERED: LEVOTHYROXINE SODIUM 150 MCG TAB PO SCH (09:00)
[2016-07-18] MEDS: CIPROFLOXACIN 250 MG TAB PO SCH ×2 (09:00→20:21)
[2016-07-18] MEDS: REMOVE OLD PATCH T-DERMAL SCH (09:00)
[2016-07-18] MEDS: traZODone HCL 100 MG TAB PO SCH ×3 (09:00→20:21)
[2016-07-18] MEDS: NICOTINE 21 MG/24 HR PATCH T-DERMAL SCH (09:00)
[2016-07-18] MEDS: GALANTAMINE HYDROBROMIDE 4 MG TAB PO SCH ×2 (09:00→20:22)
[2016-07-18] MEDS: MEMANTINE HCL 10 MG TAB PO SCH ×2 (09:00→20:22)
[2016-07-18] MEDS: LORazepam 1 MG TAB PO PRN (13:08)
--- NOTE | 2016-07-18 15:26 | HHI.PYPN ---
Subjective Remarks Patient seen on unit with nurse Nadeen. Patient seen in day room, chart review, patient alert diffusely confused essentially speaking gibberish unable to follow any verbal or hand commands. Though also no behavioral issues. Patient was admitted to the hospital under Mclean act Patient initially seen by Dr. Montemayor included first opinion petition supporting Mclean act I agree with that opinion and I will cosign second opinion petition supporting Mclean act. I am also assuming care of this patient. I reviewed patient's medication record and have done adjustments of medications including continuation of her Tegretol adjustment of her trazodone and olanzapine with her checking of the Tegretol blood level in a few days. We'll attempt to meet with patient's and the next day or 2 also patient's states she is ex- and has had a traumatic brain injury that might be associated with these behaviors. She also has a strong family history of early onset Alzheimer's disease Review of Systems Except as stated in HPI: all other systems reviewed are Neg Objective Alert: Yes [place]: Person (vaguely) Mood: Anxious, Calm Affect: Other (slight increase range and intensity) Memory Intact: Comment (very poor) Hallucinations: Other (unknown at this time) Delusions: No Delusion Type: Other (somewhat vigilant) Suicidal: Ideation (unknown at this time due to cognitive deficits) Homicidal: Ideation (unknown at this time due to cognitive deficits) Insight/Judgment Very poor Labs Date/Time Procedure Status Source Growth 07/16/16 16:15 Urine Culture - Final Complete Urine Clean Catch 50-100,000 CFU/ML MIXED GRAM POSITIVE... Vitals/IOs Vital Signs Date Time Temp Pulse Resp B/P Pulse Ox O2 Delivery O2 Flow Rate FiO2 07/18/16 05:55 97.1 73 18 118/66 07/16/16 17:59 98 Room Air Intake and Output 07/17/16 07/17/16 07/18/16 08:00 16:00 00:00 Intake Total 840 ml Balance 840 ml Assessment & Plan Problem List: (1) Dementia ICD Code: F03.90 Assessment & Plan Estimated LOS: days patient doesn't meet Mclean criteria thus will cosign second opinion petition supporting Mclean act that was initiated by Dr. Montemayor on admission. She medication adjustments above. We'll attempt to meet with patient's to get further information Justification for Cont. Inpt. At this time patient will decompensate place to the lower level of care Discharge Planning To be determined Request HC Surrog/Guard Advoc?: Yes Problem Qualifiers (1) Dementia: Qualified Code: F03.91 - Dementia with behavioral disturbance, unspecified dementia type Jordan Suárez MD July 18, 2016 15:26
[2016-07-18 17:28] VITALS: BP 122/76; PULSE 84; RESP 16; TEMP 97.6; O2SAT 95
[2016-07-18] MEDS: TAMSULOSIN HCL 0.4 MG CAP PO SCH (20:21)
[2016-07-18] MEDS: carBAMazepine 200 MG TAB PO SCH (20:22)
[2016-07-18] MEDS: OLANZapine 10 MG TAB PO SCH (20:23)
[2016-07-19 05:33] VITALS: BP 133/77; PULSE 90; RESP 18; TEMP 98.6
[2016-07-19 06:00] VITALS: BP 133/77; PULSE 90; RESP 18; TEMP 98.6; O2SAT 99
[2016-07-19] MEDS: LEVOTHYROXINE SODIUM 150 MCG TAB PO SCH (06:00)
[2016-07-19] MEDS: MEMANTINE HCL 10 MG TAB PO SCH ×2 (09:04→21:35)
[2016-07-19] MEDS: OLANZapine 10 MG TAB PO SCH ×2 (09:04→21:35)
[2016-07-19] MEDS: CIPROFLOXACIN 250 MG TAB PO SCH ×2 (09:04→21:40)
[2016-07-19] MEDS: carBAMazepine 200 MG TAB PO SCH ×2 (09:05→21:35)
[2016-07-19] MEDS: GALANTAMINE HYDROBROMIDE 4 MG TAB PO SCH ×2 (09:05→21:42)
--- NOTE | 2016-07-19 15:03 | HHI.PYPN ---
Subjective Remarks Patient seen in day room with nurse Kerry, patient continues markedly confused disoriented superficial silly and somewhat childlike. Continues to at times slap act self. It appears the intensity is somewhat softer. Patient compliant medications. For now continue treatment Review of Systems Except as stated in HPI: all other systems reviewed are Neg Objective Alert: Yes [place]: Person (vaguely) Mood: Anxious, Calm Affect: Other (slight increase range and intensity) Memory Intact: Comment (very poor) Hallucinations: Other (unknown at this time) Delusions: No Delusion Type: Other (somewhat vigilant) Suicidal: Ideation (unknown at this time due to cognitive deficits) Homicidal: Ideation (unknown at this time due to cognitive deficits) Insight/Judgment Very poor Labs Date/Time Procedure Status Source Growth 07/16/16 16:15 Urine Culture - Final Complete Urine Clean Catch 50-100,000 CFU/ML MIXED GRAM POSITIVE... Vitals/IOs Vital Signs Date Time Temp Pulse Resp B/P Pulse Ox O2 Delivery O2 Flow Rate FiO2 07/19/16 06:00 98.6 90 18 133/77 99 07/16/16 17:59 Room Air Intake and Output 07/18/16 07/18/16 07/19/16 08:00 16:00 00:00 Intake Total 240 ml 720 ml Balance 240 ml 720 ml Assessment & Plan Problem List: (1) Dementia ICD Code: F03.90 (2) History of traumatic brain injury ICD Code: Z87.820 Assessment & Plan Estimated LOS: days patient continues markedly demented and confused with some self-injurious behavior. Compliant medications. Continue treatment Justification for Cont. Inpt. At this time patient will decompensate if placed in a lower level of care Discharge Planning To be determined Request HC Surrog/Guard Advoc?: Yes Problem Qualifiers (1) Dementia: Qualified Code: F03.91 - Dementia with behavioral disturbance, unspecified dementia type Jordan Suárez MD July 19, 2016 15:03
[2016-07-19 17:17] VITALS: BP 149/67; PULSE 81; RESP 18; TEMP 97.9
[2016-07-19] MEDS: LORazepam 1 MG TAB PO PRN (17:18)
--- NOTE | 2016-07-19 18:42 | HHI.PR ---
Subjective Remarks Follow-up visit Alzheimer's disease, anxiety, depression, dementia, seizure disorder, hypothyroidism. Patient seen and examined today. She appears to be more calm and following commands. Patient is not clapping during conversations anymore as per staff, she was given Ativan and hour before she was seen and examined. Denies pain and discomfort. Denies SOB/ dyspnea. Denies chest pain, palpitations, headaches, dizziness. Denies fevers, chills, n/v/d. Denies dysuria. As per staff, No acute issues overnight Objective Vitals Vital Signs Date Time Temp Pulse Resp B/P Pulse Ox O2 Delivery O2 Flow Rate FiO2 07/19/16 17:17 97.9 81 18 149/67 07/19/16 06:00 98.6 90 18 133/77 99 07/19/16 05:33 98.6 90 18 133/77 I/O 07/18/16 07/18/16 07/18/16 07/19/16 07/19/16 07/19/16 07:00 15:00 23:00 07:00 15:00 23:00 Intake Total 240 ml 720 ml 480 ml Balance 240 ml 720 ml 480 ml Intake Oral 240 ml 720 ml 480 ml # Voids 2 2 1 Result Diagram: 07/16/16 1615 07/16/16 1615 Imaging Last Impressions Head CT 07/16/16 0000 Signed Impressions: Service Date/Time: Saturday, July 16, 2016 17:37 - CONCLUSION: Generalized atrophy advanced for age. Stable evaluation without evidence of acute infarct, hemorrhage, mass or edema. Fredy Rhodes MD Objective Remarks GENERAL: This is a well-nourished, well-developed patient, in no apparent distress. SKIN: No rashes, ecchymoses or lesions. Warm and dry HEAD: Normocephalic. EYES: Pupils equal round and reactive. No scleral icterus. No injection or drainage. ENT: Nose without bleeding. Throat without erythema. Uvula midline. Airway patent. NECK: Trachea midline. No JVD or lymphadenopathy. CARDIOVASCULAR: Regular rate and rhythm without murmurs, gallops, or rubs. RESPIRATORY: Clear to auscultation. Breath sounds equal bilaterally. No wheezes , rales, or rhonchi. GASTROINTESTINAL: Abdomen soft, non-tender, nondistended. Bowel sounds active 4 MUSCULOSKELETAL: Extremities without clubbing, cyanosis, bilateral lower extremity +1 edema. NEUROLOGICAL: Awake and alert. Confuse, oriented to self only. Follows some commands. Motor and sensory grossly within normal limits. Normal speech. A/P Problem List: (1) Delirium ICD Code: R41.0 Status: Acute (2) UTI (urinary tract infection) ICD Code: N39.0 Status: Acute (3) Dementia ICD Code: F03.90 Status: Acute Assessment and Plan Patient is a 61-year-old female with primary medical history of Alzheimer's disease stage III, bipolar disorder, anxiety, depression, dementia, seizure disorder, retrograde amnesia, hypothyroidism, hiatal hernia, GERD who came into the hospital for altered mental status. As per review of records, patient's medications has been changed increase. Alzheimer's stage III, dementia with behavioral disturbances - managed by psychiatry - Improved behavior Urinary tract infection, possibly gram-negative rods - No Leukocytosis - Given Cipro IV in the ED - Continue Cipro by mouth until completed - Denies any dysuria. As per staff no acute issues. LORRAINE on CKD 3 - Since 2006 creatinine has been 0.97 to 1.19 - Avoid nephrotoxins Hypothyroidism - Restart home medication levothyroxine 150 g - TSH checked within normal 2.940 DVT prop ambulation Status with patient, nursing, Dr. Neal Peraza from Hospitalist standpoint. We will sign off. Reconsult as needed. Problem Qualifiers (1) UTI (urinary tract infection): Qualified Code: N39.0 - Urinary tract infection without hematuria, site unspecified (2) Dementia: Qualified Code: F03.91 - Dementia with behavioral disturbance, unspecified dementia type Kadi Foster July 19, 2016 18:42 Kathya De Jesus MD July 19, 2016 20:19
[2016-07-19] MEDS: TAMSULOSIN HCL 0.4 MG CAP PO SCH (21:35)
[2016-07-19] MEDS: traZODone HCL 100 MG TAB PO SCH (21:35)
[2016-07-20] MEDS: LEVOTHYROXINE SODIUM 150 MCG TAB PO SCH (05:56)
[2016-07-20 06:44] VITALS: BP 98/57; PULSE 67; RESP 18; TEMP 97.8; O2SAT 96
[2016-07-20] MEDS: CIPROFLOXACIN 250 MG TAB PO SCH ×2 (09:00→20:41)
[2016-07-20] MEDS: MEMANTINE HCL 10 MG TAB PO SCH ×2 (09:00→20:20)
[2016-07-20] MEDS: carBAMazepine 200 MG TAB PO SCH ×2 (09:00→20:20)
[2016-07-20] MEDS: OLANZapine 10 MG TAB PO SCH ×2 (09:00→20:20)
[2016-07-20] MEDS: GALANTAMINE HYDROBROMIDE 4 MG TAB PO SCH ×2 (09:00→20:20)
[2016-07-20] MEDS: LORazepam 1 MG TAB PO PRN (09:28)
[2016-07-20 12:32] LABS: BICARBONATE 29.3 MEQ/L (21.0-32.0); POTASSIUM 3.9 MEQ/L (3.5-5.1)
--- NOTE | 2016-07-20 12:40 | HHI.PYPN ---
Subjective Remarks Patient seen in day room with nurse Nadeen, chart reviewed. Patient compliant medications. Patient continues markedly confused disoriented at times superficial silly and childlike. Clapping her hands spontaneously and also at times striking herself. For now continue treatment Review of Systems Except as stated in HPI: all other systems reviewed are Neg Objective Alert: Yes [place]: Person (vaguely) Mood: Anxious, Calm Affect: Other (slight increase range and intensity) Memory Intact: Comment (very poor) Hallucinations: Other (unknown at this time) Delusions: No Delusion Type: Other (somewhat vigilant) Suicidal: Ideation (unknown at this time due to cognitive deficits) Homicidal: Ideation (unknown at this time due to cognitive deficits) Insight/Judgment Very poor Labs Test 07/20/16 11:46 Sodium Level 141 MEQ/L Potassium Level 3.9 MEQ/L Chloride Level 104 MEQ/L Carbon Dioxide Level 29.3 MEQ/L Anion Gap 8 MEQ/L Blood Urea Nitrogen 18 MG/DL Creatinine 0.80 MG/DL Estimat Glomerular Filtration 72 ML/MIN Rate Random Glucose 94 MG/DL Calcium Level 8.6 MG/DL Date/Time Procedure Status Source Growth 07/16/16 16:15 Urine Culture - Final Complete Urine Clean Catch 50-100,000 CFU/ML MIXED GRAM POSITIVE... Vitals/IOs Vital Signs Date Time Temp Pulse Resp B/P Pulse Ox O2 Delivery O2 Flow Rate FiO2 07/20/16 06:44 97.8 67 18 98/57 96 07/16/16 17:59 Room Air Intake and Output 07/19/16 07/19/16 07/20/16 08:00 16:00 00:00 Intake Total 240 ml 240 ml 300 ml Balance 240 ml 240 ml 300 ml Assessment & Plan Problem List: (1) Dementia ICD Code: F03.90 (2) History of traumatic brain injury ICD Code: Z87.820 Assessment & Plan Estimated LOS: days patient continues demented confused at times somewhat labile with some self injurious behaviors, compliant medications, awaiting original blood level Justification for Cont. Inpt. At this time patient would decompensate if placed in a lower level of care Discharge Planning To be determined Request HC Surrog/Guard Advoc?: Yes Problem Qualifiers (1) Dementia: Qualified Code: F03.91 - Dementia with behavioral disturbance, unspecified dementia type Jordan Suárez MD July 20, 2016 12:39
[2016-07-20 18:20] VITALS: BP 152/72; PULSE 75; RESP 17; TEMP 98.2
[2016-07-20] MEDS: TAMSULOSIN HCL 0.4 MG CAP PO SCH (20:20)
[2016-07-20] MEDS: traZODone HCL 100 MG TAB PO SCH (20:20)
[2016-07-21] MEDS: LEVOTHYROXINE SODIUM 150 MCG TAB PO SCH (05:25)
[2016-07-21] MEDS: LORazepam 1 MG TAB PO PRN ×2 (06:33→14:17)
[2016-07-21 06:46] VITALS: BP 158/70; PULSE 76; RESP 18; TEMP 97.8; O2SAT 99
[2016-07-21] MEDS: carBAMazepine 200 MG TAB PO SCH ×2 (09:54→22:54)
[2016-07-21] MEDS: CIPROFLOXACIN 250 MG TAB PO SCH ×2 (09:54→22:54)
[2016-07-21] MEDS: OLANZapine 10 MG TAB PO SCH ×2 (09:54→22:55)
[2016-07-21] MEDS: MEMANTINE HCL 10 MG TAB PO SCH ×2 (09:54→22:57)
[2016-07-21] MEDS: GALANTAMINE HYDROBROMIDE 4 MG TAB PO SCH ×2 (09:54→22:55)
--- NOTE | 2016-07-21 09:55 | HHI.PYPN ---
Subjective Remarks Patient seen and examined with nurse in weekend coverage. Chart reviewed. Case discussed with nursing staff who reports patient was no real behavioral problem overnight but does have a history of significant behavioral disturbance and self injury in the setting of her neurocognitive disorder. On my examination today, the patient presents as profoundly confused, I am told her baseline. She verbalizes minimally, and this is largely nonsense, and I'm told this is her baseline as well. No evident physical distress. Review of Systems ROS Limitations: Poor Historian Other Unable to obtain because patient is unable to communicate comprehensibly. Objective Alert: Yes [place]: Person (disoriented) Mood: Calm Affect: Flat Memory Intact: Comment (Suspect significantly impaired) Hallucinations: Other (Unable to assess) Delusions: No Delusion Type: Other (Unable to assess) Suicidal: Ideation (Unable to assess) Homicidal: Ideation (Unable to assess) Insight/Judgment Poor Remarks No motor abnormalities noted Labs Test 07/20/16 11:46 Sodium Level 141 MEQ/L Potassium Level 3.9 MEQ/L Chloride Level 104 MEQ/L Carbon Dioxide Level 29.3 MEQ/L Anion Gap 8 MEQ/L Blood Urea Nitrogen 18 MG/DL Creatinine 0.80 MG/DL Estimat Glomerular Filtration 72 ML/MIN Rate Random Glucose 94 MG/DL Calcium Level 8.6 MG/DL Date/Time Procedure Status Source Growth 07/16/16 16:15 Urine Culture - Final Complete Urine Clean Catch 50-100,000 CFU/ML MIXED GRAM POSITIVE... Labs reviewed. GFR improving. Vitals/IOs Vital Signs Date Time Temp Pulse Resp B/P Pulse Ox O2 Delivery O2 Flow Rate FiO2 07/21/16 06:46 97.8 76 18 158/70 99 Intake and Output 07/20/16 07/20/16 07/20/16 07:59 15:59 23:59 Intake Total 240 ml 0 ml 480 ml Balance 240 ml 0 ml 480 ml Assessment & Plan Problem List: (1) Dementia ICD Code: F03.90 (2) History of traumatic brain injury ICD Code: Z87.820 Assessment & Plan Continue current psychotropics as ordered. Continue to monitor on inpatient unit. Hospitalist economics consultant input noted and appreciated. Continue other medications and care as ordered. Justification for Cont. Inpt. High risk for decompensation in a less restrictive environment. Discharge Planning Per Dr. Suárez Request HC Surrog/Guard Advoc?: Yes Problem Qualifiers (1) Dementia: Qualified Code: F03.91 - Dementia with behavioral disturbance, unspecified dementia type Louie Keith MD July 21, 2016 09:55
[2016-07-21 19:21] VITALS: BP 136/72; PULSE 97; TEMP 98.4; O2SAT 95
[2016-07-21] MEDS: traZODone HCL 100 MG TAB PO SCH (22:54)
[2016-07-21] MEDS: TAMSULOSIN HCL 0.4 MG CAP PO SCH (22:54)
[2016-07-22 05:43] VITALS: BP 141/82; PULSE 60; RESP 18; TEMP 97.8; O2SAT 98
[2016-07-22] MEDS: LEVOTHYROXINE SODIUM 150 MCG TAB PO SCH (06:08)
[2016-07-22] MEDS: CIPROFLOXACIN 250 MG TAB PO SCH (08:40)
[2016-07-22] MEDS: OLANZapine 10 MG TAB PO SCH ×2 (08:40→20:47)
[2016-07-22] MEDS: GALANTAMINE HYDROBROMIDE 4 MG TAB PO SCH ×2 (08:40→20:47)
[2016-07-22] MEDS: MEMANTINE HCL 10 MG TAB PO SCH ×2 (08:41→20:47)
[2016-07-22] MEDS: carBAMazepine 200 MG TAB PO SCH ×2 (08:41→20:47)
--- NOTE | 2016-07-22 12:58 | HHI.PYPN ---
Subjective Remarks Patient was seen for psychiatric reevaluation, patient was found sleeping, very uneasy to arouse, and it is to follow sleep while interview, seems to be sedated , however once awakened, she says that she feels better, denies depression, denies suicidal or homicidal ideation, denies visual and auditory hallucinations. Disoriented in time and place. Objective Alert: Yes [place]: Person (disoriented) Mood: Calm Affect: Flat Memory Intact: Comment (Suspect significantly impaired) Hallucinations: Other (Unable to assess) Delusions: No Delusion Type: Other (Unable to assess) Suicidal: Ideation (Unable to assess) Homicidal: Ideation (Unable to assess) Insight/Judgment poor Remarks Poor Labs Test 07/22/16 09:38 Carbamazepine (Tegretol) Level 6.4 MCG/ML Vitals/IOs Vital Signs Date Time Temp Pulse Resp B/P Pulse Ox O2 Delivery O2 Flow Rate FiO2 07/22/16 05:43 97.8 60 18 141/82 98 Intake and Output 07/21/16 07/21/16 07/22/16 08:00 16:00 00:00 Intake Total 480 ml 960 ml Balance 480 ml 960 ml Assessment & Plan Problem List: (1) Dementia ICD Code: F03.90 (2) History of traumatic brain injury ICD Code: Z87.820 Assessment & Plan Estimated LOS: days Justification for Cont. Inpt. Patient is to continue current level of care due to risk of decompensation Request HC Surrog/Guard Advoc?: Yes Problem Qualifiers (1) Dementia: Qualified Code: F03.91 - Dementia with behavioral disturbance, unspecified dementia type German Ruvalcaba MD July 22, 2016 12:58
[2016-07-22] MEDS: LORazepam 1 MG TAB PO PRN (13:29)
[2016-07-22 20:37] VITALS: BP 112/78; PULSE 66; RESP 18; TEMP 97.9; O2SAT 97
[2016-07-22] MEDS: TAMSULOSIN HCL 0.4 MG CAP PO SCH (20:47)
[2016-07-22] MEDS: traZODone HCL 100 MG TAB PO SCH (20:47)
[2016-07-23 05:35] VITALS: BP 112/66; PULSE 61; RESP 18; TEMP 97.6
[2016-07-23] MEDS: LEVOTHYROXINE SODIUM 150 MCG TAB PO SCH ×2 (06:00→21:05)
[2016-07-23] MEDS: MEMANTINE HCL 10 MG TAB PO SCH ×2 (08:51→21:00)
[2016-07-23] MEDS: carBAMazepine 200 MG TAB PO SCH ×2 (08:51→21:00)
[2016-07-23] MEDS: OLANZapine 10 MG TAB PO SCH (08:51)
[2016-07-23] MEDS: GALANTAMINE HYDROBROMIDE 4 MG TAB PO SCH ×2 (08:52→21:00)
--- NOTE | 2016-07-23 16:48 | HHI.PYPN ---
Subjective Remarks Patient seen in day room with nurse Jeremy, patient continues labile confused somewhat silly. Continues to slip at table and occasionally at self. Staff also notices more irritability toward sundowning. Will adjust Zyprexa to 5 mg in the a.m. and 15 mg at 2 PM Review of Systems Except as stated in HPI: all other systems reviewed are Neg Objective Alert: Yes [place]: Person (disoriented) Mood: Calm Affect: Flat Memory Intact: Comment (Suspect significantly impaired) Hallucinations: Other (Unable to assess) Delusions: No Delusion Type: Other (Unable to assess) Suicidal: Ideation (Unable to assess) Homicidal: Ideation (Unable to assess) Insight/Judgment Very poor Vitals/IOs Vital Signs Date Time Temp Pulse Resp B/P Pulse Ox O2 Delivery O2 Flow Rate FiO2 07/23/16 05:35 97.6 61 18 112/66 07/22/16 20:37 97 Intake and Output 07/22/16 07/22/16 07/23/16 08:00 16:00 00:00 Intake Total 0 ml 520 ml 480 ml Balance 0 ml 520 ml 480 ml Assessment & Plan Problem List: (1) Dementia ICD Code: F03.90 (2) History of traumatic brain injury ICD Code: Z87.820 Assessment & Plan Estimated LOS: days patient continues confused demented disoriented with some self related behavior placing medication adjustments above Justification for Cont. Inpt. This time patient will decompensate if placed in a lower level of care Discharge Planning To be determined Request HC Surrog/Guard Advoc?: Yes Problem Qualifiers (1) Dementia: Qualified Code: F03.91 - Dementia with behavioral disturbance, unspecified dementia type Jordan Suárez MD July 23, 2016 16:48
[2016-07-23] MEDS: LORazepam 1 MG TAB PO PRN (17:47)
[2016-07-23 19:46] VITALS: BP 123/78; PULSE 78; RESP 17; TEMP 98; O2SAT 98
[2016-07-23] MEDS: TAMSULOSIN HCL 0.4 MG CAP PO SCH (21:00)
[2016-07-23] MEDS: traZODone HCL 100 MG TAB PO SCH (21:00)
[2016-07-24] MEDS: LORazepam 1 MG TAB PO PRN ×2 (02:02→18:05)
[2016-07-24 05:16] VITALS: BP 120/71; PULSE 69; RESP 16; TEMP 97; O2SAT 99
[2016-07-24] MEDS: LEVOTHYROXINE SODIUM 150 MCG TAB PO SCH (06:50)
[2016-07-24] MEDS: carBAMazepine 200 MG TAB PO SCH ×2 (09:09→20:57)
[2016-07-24] MEDS: GALANTAMINE HYDROBROMIDE 4 MG TAB PO SCH ×2 (09:09→20:58)
[2016-07-24] MEDS: OLANZapine 5 MG TAB PO SCH (09:10)
[2016-07-24] MEDS: MEMANTINE HCL 10 MG TAB PO SCH ×2 (09:10→20:58)
--- NOTE | 2016-07-24 14:23 | HHI.PYPN ---
Subjective Remarks Patient seen in day room with nurse Jeremy patient continue somewhat arouse intense clapping hands eating hands on tray. Says states patient behavior last night was worse needing to ETO's for to calm. Will increase Tegretol to 200 mg a.m. 300 mg at bedtime check level in about 3 days. We'll also change afternoon Zyprexa from 2 PM to 4 PM Review of Systems Except as stated in HPI: all other systems reviewed are Neg Objective Alert: Yes [place]: Person (disoriented) Mood: Calm Affect: Flat Memory Intact: Comment (Suspect significantly impaired) Hallucinations: Other (Unable to assess) Delusions: No Delusion Type: Other (Unable to assess) Suicidal: Ideation (Unable to assess) Homicidal: Ideation (Unable to assess) Insight/Judgment Poor Vitals/IOs Vital Signs Date Time Temp Pulse Resp B/P Pulse Ox O2 Delivery O2 Flow Rate FiO2 07/24/16 05:16 97.0 69 16 120/71 99 Intake and Output 07/23/16 07/23/16 07/23/16 07:59 15:59 23:59 Intake Total 240 ml 1680 ml Balance 240 ml 1680 ml Assessment & Plan Problem List: (1) Dementia ICD Code: F03.90 (2) History of traumatic brain injury ICD Code: Z87.820 Assessment & Plan Estimated LOS: days patient continues confused disoriented markedly agitated sister doing multiple ETO gestured a see medication changes above Justification for Cont. Inpt. At this time patient will decompensate with placed at a lower level of care Discharge Planning To be determined Request HC Surrog/Guard Advoc?: Yes Problem Qualifiers (1) Dementia: Qualified Code: F03.91 - Dementia with behavioral disturbance, unspecified dementia type Jordan Suárez MD July 24, 2016 14:23
[2016-07-24] MEDS ORDERED: PILL SPLITTER OTHER PRN (14:30)
[2016-07-24 19:38] VITALS: BP 120/71; PULSE 69; RESP 16; TEMP 97; O2SAT 99
[2016-07-24] MEDS: traZODone HCL 100 MG TAB PO SCH (20:56)
[2016-07-24] MEDS: TAMSULOSIN HCL 0.4 MG CAP PO SCH (20:58)
[2016-07-25] MEDS: LEVOTHYROXINE SODIUM 150 MCG TAB PO SCH (05:29)
[2016-07-25 05:42] VITALS: BP 108/60; PULSE 65; RESP 18; TEMP 97.5; O2SAT 98
[2016-07-25] MEDS: MEMANTINE HCL 10 MG TAB PO SCH ×2 (09:57→20:59)
[2016-07-25] MEDS: GALANTAMINE HYDROBROMIDE 4 MG TAB PO SCH ×2 (09:57→22:12)
[2016-07-25] MEDS: OLANZapine 5 MG TAB PO SCH (09:58)
[2016-07-25] MEDS: carBAMazepine 200 MG TAB PO SCH ×2 (09:58→20:59)
--- NOTE | 2016-07-25 10:36 | HHI.PYPN ---
Subjective Remarks Patient seen in day room. Patient sitting in Lynne chair, patient seen with floor staff, chart reviewed. Patient continues intense confused at times clapping at times hitting the tray. Patient so far compliant with medications for now continue treatment patient scheduled for [facility] tomorrow Review of Systems Except as stated in HPI: all other systems reviewed are Neg Objective Alert: Yes [place]: Person (disoriented) Mood: Calm Affect: Flat Memory Intact: Comment (Suspect significantly impaired) Hallucinations: Other (Unable to assess) Delusions: No Delusion Type: Other (Unable to assess) Suicidal: Ideation (Unable to assess) Homicidal: Ideation (Unable to assess) Insight/Judgment Very poor Vitals/IOs Vital Signs Date Time Temp Pulse Resp B/P Pulse Ox O2 Delivery O2 Flow Rate FiO2 07/25/16 05:42 97.5 65 18 108/60 98 Intake and Output 07/24/16 07/24/16 07/25/16 08:00 16:00 00:00 Intake Total 720 ml Balance 720 ml Assessment & Plan Problem List: (1) Dementia ICD Code: F03.90 (2) History of traumatic brain injury ICD Code: Z87.820 Assessment & Plan Estimated LOS: days patient continues confused disoriented superficial and silly continues to Hands it food tray, occasionally slaps, patient scheduled for [facility] tomorrow Justification for Cont. Inpt. If this time patient will decompensate placed in a lower level of care Discharge Planning To be determined Request HC Surrog/Guard Advoc?: Yes Problem Qualifiers (1) Dementia: Qualified Code: F03.91 - Dementia with behavioral disturbance, unspecified dementia type Jordan Suárez MD July 25, 2016 10:36
[2016-07-25 16:00] VITALS: BP 181/74; PULSE 88; RESP 19; TEMP 97.6; O2SAT 98
[2016-07-25] MEDS: traZODone HCL 100 MG TAB PO SCH (20:58)
[2016-07-25] MEDS: TAMSULOSIN HCL 0.4 MG CAP PO SCH (20:59)
[2016-07-26] MEDS: LEVOTHYROXINE SODIUM 150 MCG TAB PO SCH (05:11)
[2016-07-26 05:30] VITALS: BP 108/74; PULSE 76; RESP 18; TEMP 98
[2016-07-26] MEDS: MEMANTINE HCL 10 MG TAB PO SCH ×2 (10:08→20:13)
[2016-07-26] MEDS: OLANZapine 5 MG TAB PO SCH (10:08)
[2016-07-26] MEDS: carBAMazepine 200 MG TAB PO SCH ×2 (10:09→20:14)
[2016-07-26] MEDS: GALANTAMINE HYDROBROMIDE 4 MG TAB PO SCH ×2 (10:10→20:13)
--- NOTE | 2016-07-26 12:35 | HHI.PYPN ---
Subjective Remarks Patient seen in [place] [address] with patient's and sister case continued by Correspondence Renew Clerk Dimitri for 4 weeks. Was noted to be devoted to his states his goal is to have her return home with appropriate services in the home. However patient continues to be impulsive with clapping hitting her tray table at times hitting herself patient compliant medications for now continue treatment Review of Systems Except as stated in HPI: all other systems reviewed are Neg Objective Alert: Yes [place]: Person (disoriented) Mood: Calm Affect: Flat Memory Intact: Comment (Suspect significantly impaired) Hallucinations: Other (Unable to assess) Delusions: No Delusion Type: Other (Unable to assess) Suicidal: Ideation (Unable to assess) Homicidal: Ideation (Unable to assess) Insight/Judgment Very poor Vitals/IOs Vital Signs Date Time Temp Pulse Resp B/P Pulse Ox O2 Delivery O2 Flow Rate FiO2 07/26/16 05:30 98.0 76 18 108/74 07/25/16 16:00 98 Intake and Output 07/25/16 07/25/16 07/26/16 08:00 16:00 00:00 Intake Total 600 ml Balance 600 ml Assessment & Plan Problem List: (1) Dementia ICD Code: F03.90 (2) History of traumatic brain injury ICD Code: Z87.820 Assessment & Plan Estimated LOS: days patient continues labile impulsive confused and demented. For now continue treatment Justification for Cont. Inpt. At this time patient will decompensate if placed in a lower level of care Discharge Planning To be determined Request HC Surrog/Guard Advoc?: Yes Problem Qualifiers (1) Dementia: Qualified Code: F03.91 - Dementia with behavioral disturbance, unspecified dementia type Jordan Suárez MD July 26, 2016 12:35
[2016-07-26] MEDS: LORazepam 1 MG TAB PO PRN (13:30)
[2016-07-26] MEDS: traZODone HCL 100 MG TAB PO SCH (20:12)
[2016-07-26] MEDS: TAMSULOSIN HCL 0.4 MG CAP PO SCH (20:13)
[2016-07-27] MEDS: LEVOTHYROXINE SODIUM 150 MCG TAB PO SCH (05:32)
[2016-07-27 05:45] VITALS: BP 135/65; PULSE 77; RESP 16; TEMP 98.1; O2SAT 100
[2016-07-27] MEDS: OLANZapine 5 MG TAB PO SCH (09:58)
[2016-07-27] MEDS: MEMANTINE HCL 10 MG TAB PO SCH ×2 (09:58→21:00)
[2016-07-27] MEDS: GALANTAMINE HYDROBROMIDE 4 MG TAB PO SCH ×2 (09:58→21:00)
[2016-07-27] MEDS: carBAMazepine 200 MG TAB PO SCH ×2 (09:59→21:00)
[2016-07-27] MEDS: LORazepam 1 MG TAB PO PRN ×2 (10:21→17:44)
--- NOTE | 2016-07-27 10:30 | HHI.PYPN ---
Subjective Remarks Patient seen in day room with nurse Jolene, patient somewhat quiet this morning. Thus have states there yesterday afternoon patient was clapping her hands frequently and hitting the tree and her Lynne chair. Patient compliant medications. Tegretol level drawn this a.m. is 8.1 for now continue treatment Review of Systems Except as stated in HPI: all other systems reviewed are Neg Objective Alert: Yes [place]: Person (disoriented) Mood: Calm Affect: Flat Memory Intact: Comment (Suspect significantly impaired) Hallucinations: Other (Unable to assess) Delusions: No Delusion Type: Other (Unable to assess) Suicidal: Ideation (Unable to assess) Homicidal: Ideation (Unable to assess) Insight/Judgment Very poor Labs Test 07/27/16 08:04 Carbamazepine (Tegretol) Level 8.1 MCG/ML Vitals/IOs Vital Signs Date Time Temp Pulse Resp B/P Pulse Ox O2 Delivery O2 Flow Rate FiO2 07/27/16 05:45 98.1 77 16 135/65 100 Intake and Output 07/26/16 07/26/16 07/27/16 08:00 16:00 00:00 Intake Total 240 ml 1410 ml Balance 240 ml 1410 ml Assessment & Plan Problem List: (1) Dementia ICD Code: F03.90 (2) History of traumatic brain injury ICD Code: Z87.820 Assessment & Plan Estimated LOS: days patient continues confused labile markedly disorganized. Compliant medications. For now continue treatment Justification for Cont. Inpt. At this time patient will decompensate the placed in a lower level of care Discharge Planning To be determined Request HC Surrog/Guard Advoc?: Yes Problem Qualifiers (1) Dementia: Qualified Code: F03.91 - Dementia with behavioral disturbance, unspecified dementia type Jordan Suárez MD July 27, 2016 10:30
[2016-07-27 17:43] VITALS: PULSE 95; RESP 18; TEMP 98; O2SAT 95
[2016-07-27] MEDS: traZODone HCL 100 MG TAB PO SCH (21:00)
[2016-07-27] MEDS: TAMSULOSIN HCL 0.4 MG CAP PO SCH (21:00)
[2016-07-28 05:29] VITALS: BP 153/69; PULSE 84; RESP 16; TEMP 97.1; O2SAT 94
[2016-07-28] MEDS: LEVOTHYROXINE SODIUM 150 MCG TAB PO SCH (05:59)
[2016-07-28] MEDS: LORazepam 1 MG TAB PO PRN ×4 (05:59→17:14)
[2016-07-28] MEDS: carBAMazepine 200 MG TAB PO SCH ×2 (09:11→20:38)
[2016-07-28] MEDS: OLANZapine 5 MG TAB PO SCH (09:11)
[2016-07-28] MEDS: GALANTAMINE HYDROBROMIDE 4 MG TAB PO SCH ×2 (09:11→20:38)
[2016-07-28] MEDS: MEMANTINE HCL 10 MG TAB PO SCH ×2 (09:11→20:38)
--- NOTE | 2016-07-28 11:50 | HHI.PYPN ---
Subjective Remarks Patient was seen and case discussed with nursing. Patient is mildly sedated secondary to the Ativan she got an hour earlier per nursing this happens every morning we will lower the dose slightly. Per nursing, earlier in the day she was clapping responding to internal stimuli. Per nursing patient is more talkative with me and is able to tell me her name and that she is feeling good Objective Alert: Yes [place]: Person (disoriented) Mood: Calm Affect: Blunted Memory Intact: Comment (Suspect significantly impaired) Hallucinations: Other (Unable to assess) Delusions: No Delusion Type: Other (Unable to assess) Suicidal: Ideation (Unable to assess) Homicidal: Ideation (Unable to assess) Insight/Judgment Poor Vitals/IOs Vital Signs Date Time Temp Pulse Resp B/P Pulse Ox O2 Delivery O2 Flow Rate FiO2 07/28/16 05:29 97.1 84 16 153/69 94 Intake and Output 07/27/16 07/27/16 07/28/16 08:00 16:00 00:00 Intake Total 480 ml 960 ml 1320 ml Balance 480 ml 960 ml 1320 ml Assessment & Plan Problem List: (1) Dementia ICD Code: F03.90 (2) History of traumatic brain injury ICD Code: Z87.820 Assessment & Plan Continue current treatment plan, lower Ativan Justification for Cont. Inpt. Patient will decompensate in a less restrictive setting Request HC Surrog/Guard Advoc?: Yes Problem Qualifiers (1) Dementia: Qualified Code: F03.91 - Dementia with behavioral disturbance, unspecified dementia type Fabricio Patton DO July 28, 2016 11:50
[2016-07-28 18:00] VITALS: BP 166/84; PULSE 104; TEMP 97.8; O2SAT 98
[2016-07-28] MEDS: traZODone HCL 100 MG TAB PO SCH (20:38)
[2016-07-28] MEDS: TAMSULOSIN HCL 0.4 MG CAP PO SCH (20:38)
[2016-07-29] MEDS: LEVOTHYROXINE SODIUM 150 MCG TAB PO SCH (05:39)
[2016-07-29 05:58] VITALS: BP 113/63; PULSE 72; RESP 20; TEMP 97.3; O2SAT 95
[2016-07-29] MEDS: carBAMazepine 200 MG TAB PO SCH ×2 (08:51→20:34)
[2016-07-29] MEDS: GALANTAMINE HYDROBROMIDE 4 MG TAB PO SCH ×2 (08:51→20:34)
[2016-07-29] MEDS: OLANZapine 5 MG TAB PO SCH (08:51)
[2016-07-29] MEDS: MEMANTINE HCL 10 MG TAB PO SCH ×2 (08:51→20:34)
--- NOTE | 2016-07-29 12:06 | HHI.PYPN ---
Subjective Remarks Patient was seen and case discussed with nursing. Patient is less drowsy with lower Ativan dose. She remains flat but attempts to interact during the interview. Alert and oriented 1. Compliant with medications. Behaving well on the unit Objective Alert: Yes [place]: Person (disoriented) Mood: Calm Affect: Restricted Memory Intact: Comment (Suspect significantly impaired) Hallucinations: Other (Unable to assess) Delusions: No Delusion Type: Other (Unable to assess) Suicidal: Ideation (Unable to assess) Homicidal: Ideation (Unable to assess) Insight/Judgment Limited Vitals/IOs Vital Signs Date Time Temp Pulse Resp B/P Pulse Ox O2 Delivery O2 Flow Rate FiO2 07/29/16 05:58 97.3 72 20 113/63 95 Intake and Output 07/28/16 07/28/16 07/29/16 08:00 16:00 00:00 Intake Total 360 ml 960 ml Balance 360 ml 960 ml Assessment & Plan Problem List: (1) Dementia ICD Code: F03.90 (2) History of traumatic brain injury ICD Code: Z87.820 Assessment & Plan Continue current treatment plan Justification for Cont. Inpt. Patient will decompensate in a less restrictive setting Request HC Surrog/Guard Advoc?: Yes Problem Qualifiers (1) Dementia: Qualified Code: F03.91 - Dementia with behavioral disturbance, unspecified dementia type Fabricio Patton DO July 29, 2016 12:06
[2016-07-29] MEDS: LORazepam 1 MG TAB PO PRN (16:45)
--- NOTE | 2016-07-29 19:30 | HHI.PR ---
Subjective Remarks reconsulted for palpable neck mass patient c/o pain on neck swelling on right side of neck denies fevers or chills is with her states she did not have that swelling last week Patient has been afebrile Objective Vitals Vital Signs Date Time Temp Pulse Resp B/P Pulse Ox O2 Delivery O2 Flow Rate FiO2 07/29/16 05:58 97.3 72 20 113/63 95 I/O 07/28/16 07/28/16 07/28/16 07/29/16 07/29/16 07/29/16 06:59 14:59 22:59 06:59 14:59 22:59 Intake Total 240 ml 120 ml 960 ml 0 ml 1080 ml Balance 240 ml 120 ml 960 ml 0 ml 1080 ml Intake Oral 240 ml 120 ml 960 ml 0 ml 1080 ml # Voids 3 2 2 1 # Bowel Movements 0 1 Imaging Last Impressions Head CT 07/16/16 0000 Signed Impressions: Service Date/Time: Saturday, July 16, 2016 17:37 - CONCLUSION: Generalized atrophy advanced for age. Stable evaluation without evidence of acute infarct, hemorrhage, mass or edema. Fredy Rhodes MD Objective Remarks GENERAL: This is a well-nourished, well-developed patient, in no apparent distress. SKIN: No rashes, ecchymoses or lesions. Warm and dry HEAD: Normocephalic. EYES: Pupils equal round and reactive. No scleral icterus. No injection or drainage. ENT: Nose without bleeding. Throat without erythema. Uvula midline. Airway patent. NECK: Trachea midline. No JVD or lymphadenopathy. There is swelling on right side of the neck - tender to palpation, no fluctuance, erythema. CARDIOVASCULAR: Regular rate and rhythm without murmurs, gallops, or rubs. RESPIRATORY: Clear to auscultation. Breath sounds equal bilaterally. No wheezes , rales, or rhonchi. GASTROINTESTINAL: Abdomen soft, non-tender, nondistended. Bowel sounds active 4 MUSCULOSKELETAL: Extremities without clubbing, cyanosis, bilateral lower extremity +1 edema. NEUROLOGICAL: Awake and alert. Confuse, oriented to self only. Follows some commands. Motor and sensory grossly within normal limits. Normal speech. Medications and IVs Current Medications Medications (Trade) Dose Ordered Sig/Ricardo Route Start Time Stop Time Status Last Admin (Ativan Inj) 1 mg Q6H PRN IM 07/17/16 09:00 07/18/16 00:55 (Tylenol) 650 mg Q4H PRN PO 07/17/16 09:00 (Milk Of Magnesia Liq) 30 ml DAILY PRN PO 07/17/16 09:00 (Mag-Al Plus Susp Liq) 30 ml Q6H PRN PO 07/17/16 09:00 (Flomax) 0.4 mg HS PO 07/17/16 21:00 07/28/16 20:38 (Synthroid) 150 mcg DAILY@0600 PO 07/18/16 06:00 07/29/16 05:39 (Razadyne) 16 mg BID PO 07/17/16 14:15 07/29/16 08:51 (Namenda) 10 mg BID PO 07/17/16 13:45 07/29/16 08:51 (Desyrel) 400 mg HS PO 07/18/16 21:00 07/28/16 20:38 (ZyPREXA) 5 mg DAILY PO 07/24/16 09:00 07/29/16 08:51 (TEGretol) 200 mg DAILY PO 07/25/16 09:00 07/29/16 08:51 (ZyPREXA) 15 mg DAILY@16 PO 07/24/16 16:00 07/29/16 16:45 (TEGretol) 300 mg HS PO 07/24/16 21:00 07/28/16 20:38 (Pill Splitter) 1 ea UNSCH PRN OTHER 07/24/16 14:30 (Ativan) 0.5 mg Q6H PRN PO 07/28/16 15:00 07/29/16 16:45 A/P Problem List: (1) Delirium ICD Code: R41.0 Status: Acute (2) UTI (urinary tract infection) ICD Code: N39.0 Status: Acute (3) Dementia ICD Code: F03.90 Status: Acute Assessment and Plan Patient is a 61-year-old female with primary medical history of Alzheimer's disease stage III, bipolar disorder, anxiety, depression, dementia, seizure disorder, retrograde amnesia, hypothyroidism, hiatal hernia, GERD who came into the hospital for altered mental status. As per review of records, patient's medications has been changed increase. Alzheimer's stage III, dementia with behavioral disturbances - managed by psychiatry - Improved behavior Urinary tract infection, urine culture cw contamination - sp treatment with 1 dose of Ciprofloxacin IV in the ED LORRAINE on CKD 3 - Since 2006 creatinine has been 0.97 to 1.19 - Avoid nephrotoxins Hypothyroidism - Restart home medication levothyroxine 150 g - TSH checked within normal 2.940 Neck swelling - Check soft tissue neck - further management pending result. DVT prop ambulation Problem Qualifiers (1) UTI (urinary tract infection): Qualified Code: N39.0 - Urinary tract infection without hematuria, site unspecified (2) Dementia: Qualified Code: F03.91 - Dementia with behavioral disturbance, unspecified dementia type Dayron Cole MD July 29, 2016 19:30
[2016-07-29 20:11] VITALS: BP 141/83; PULSE 82; RESP 18; TEMP 96.9; O2SAT 99
[2016-07-29] MEDS: traZODone HCL 100 MG TAB PO SCH (20:33)
[2016-07-29] MEDS: TAMSULOSIN HCL 0.4 MG CAP PO SCH (20:34)
--- NOTE | 2016-07-29 22:06 | RADRPT ---
EXAM DATE/TIME: 07/29/2016 21:14 [facility] COMPARISON: No previous studies available for comparison. INDICATIONS : Palpable mass. MEDICAL HISTORY : Hypertension. Alzheimer's. Gastroesophageal reflux disease. Dementia. Head trauma. Hiatal hernia. Inc ontinence. Bipolar disorder. Depression. Anxiety. Ovarian and uterine cancer. Thyroid disease. SURGICAL HISTORY : Hysterectomy. Cholecystectomy. Left shoulder surgery. ENCOUNTER: Initial ACUITY: 1 day PAIN SCORE: 0/10 LOCATION: Right neck AREA EVALUATED: Right lateral neck. FINDINGS: Right neck soft tissues were thoroughly examined on ultrasound. No lymphadenopathy or other mass. No fluid collection. No perceptible edema. Muscles and vessels appear normal and symmetric. CONCLUSION: Normal right neck soft tissue ultrasound. Jordan Barkley MD on July 29, 2016 at 22:03 Board Certified Radiologist. This report was verified electronically.
[2016-07-30] MEDS: LORazepam 1 MG TAB PO PRN ×2 (04:08→17:51)
[2016-07-30] MEDS: LEVOTHYROXINE SODIUM 150 MCG TAB PO SCH (05:40)
[2016-07-30 06:42] VITALS: BP 142/69; PULSE 77; RESP 20; TEMP 97.8; O2SAT 99
[2016-07-30] MEDS: GALANTAMINE HYDROBROMIDE 4 MG TAB PO SCH ×2 (09:37→21:44)
[2016-07-30] MEDS: carBAMazepine 200 MG TAB PO SCH ×2 (09:37→21:44)
[2016-07-30] MEDS: MEMANTINE HCL 10 MG TAB PO SCH ×2 (09:37→21:43)
[2016-07-30] MEDS: OLANZapine 5 MG TAB PO SCH (09:37)
--- NOTE | 2016-07-30 12:49 | HHI.PYPN ---
Subjective Remarks Patient seen on unit with nurse Fer, patient calm quiet no behavior problems noted at this time. Later met with patient's and patient's sister they' re concerned about patients improvement. It appears met the patient last night and this though some clapping and slapping behaviors noted. However also appears the frequency intensity of this behaviors has softened somewhat. also concerned because her appears to be as listed in the EMR 22 different medications though much of this duplicative with meds given at different doses will need to explain this to him more in detail at her next visit. Otherwise continue treatment. Tegretol level on 07/27 is 8.1 Review of Systems Except as stated in HPI: all other systems reviewed are Neg Objective Alert: Yes [place]: Person (disoriented) Mood: Calm Affect: Restricted Memory Intact: Comment (Suspect significantly impaired) Hallucinations: Other (Unable to assess) Delusions: No Delusion Type: Other (Unable to assess) Suicidal: Ideation (Unable to assess) Homicidal: Ideation (Unable to assess) Insight/Judgment Poor Vitals/IOs Vital Signs Date Time Temp Pulse Resp B/P Pulse Ox O2 Delivery O2 Flow Rate FiO2 07/30/16 06:42 97.8 77 20 142/69 99 Intake and Output 07/29/16 07/29/16 07/29/16 07:59 15:59 23:59 Intake Total 0 ml 1080 ml 840 ml Balance 0 ml 1080 ml 840 ml Assessment & Plan Problem List: (1) Dementia ICD Code: F03.90 (2) History of traumatic brain injury ICD Code: Z87.820 Assessment & Plan Estimated LOS: days patient is is confused and cognitively impaired. Behaviors seem to soften somewhat. Continue treatment Tegretol level good at this time Justification for Cont. Inpt. At this time patient will decompensate if placed in the lower level of care Discharge Planning To be determined Request HC Surrog/Guard Advoc?: Yes Problem Qualifiers (1) Dementia: Qualified Code: F03.91 - Dementia with behavioral disturbance, unspecified dementia type Jordan Suárez MD July 30, 2016 12:49
[2016-07-30 17:00] VITALS: PULSE 88; RESP 20; TEMP 98.4
--- NOTE | 2016-07-30 19:56 | HHI.PR ---
Subjective Remarks Patient states neck is much better and it does not hurt. denies cp/sob stable vital, signs Objective Vitals Vital Signs Date Time Temp Pulse Resp B/P Pulse Ox O2 Delivery O2 Flow Rate FiO2 07/30/16 17:00 98.4 88 20 07/30/16 06:42 97.8 77 20 142/69 99 07/29/16 20:11 96.9 82 18 141/83 99 I/O 07/29/16 07/29/16 07/29/16 07/30/16 07/30/16 07/30/16 06:59 14:59 22:59 06:59 14:59 22:59 Intake Total 0 ml 1080 ml 840 ml 360 ml 720 ml Balance 0 ml 1080 ml 840 ml 360 ml 720 ml Intake Oral 0 ml 1080 ml 840 ml 360 ml 720 ml # Voids 2 1 7 3 # Bowel Movements 1 Imaging Last Impressions Neck Ultrasound 07/29/16 0000 Signed Impressions: Service Date/Time: Friday, July 29, 2016 21:14 - CONCLUSION: Normal right neck soft tissue ultrasound. Jordan Barkley MD Head CT 07/16/16 0000 Signed Impressions: Service Date/Time: Saturday, July 16, 2016 17:37 - CONCLUSION: Generalized atrophy advanced for age. Stable evaluation without evidence of acute infarct, hemorrhage, mass or edema. Fredy Rhodes MD Objective Remarks GENERAL: This is a well-nourished, well-developed patient, in no apparent distress. SKIN: No rashes, ecchymoses or lesions. Warm and dry HEAD: Normocephalic. EYES: Pupils equal round and reactive. No scleral icterus. No injection or drainage. ENT: Nose without bleeding. Throat without erythema. Uvula midline. Airway patent. NECK: Trachea midline. No JVD or lymphadenopathy. swelling on right side of neck has resolved. CARDIOVASCULAR: Regular rate and rhythm without murmurs, gallops, or rubs. RESPIRATORY: Clear to auscultation. Breath sounds equal bilaterally. No wheezes , rales, or rhonchi. GASTROINTESTINAL: Abdomen soft, non-tender, nondistended. Bowel sounds active 4 MUSCULOSKELETAL: Extremities without clubbing, cyanosis, bilateral lower extremity +1 edema. NEUROLOGICAL: Awake and alert. Confuse, oriented to self only. Follows some commands. Motor and sensory grossly within normal limits. Normal speech. Medications and IVs Current Medications Medications (Trade) Dose Ordered Sig/Ricardo Route Start Time Stop Time Status Last Admin (Ativan Inj) 1 mg Q6H PRN IM 07/17/16 09:00 07/18/16 00:55 (Tylenol) 650 mg Q4H PRN PO 07/17/16 09:00 (Milk Of Magnesia Liq) 30 ml DAILY PRN PO 07/17/16 09:00 (Mag-Al Plus Susp Liq) 30 ml Q6H PRN PO 07/17/16 09:00 (Flomax) 0.4 mg HS PO 07/17/16 21:00 07/29/16 20:34 (Synthroid) 150 mcg DAILY@0600 PO 07/18/16 06:00 07/30/16 05:40 (Razadyne) 16 mg BID PO 07/17/16 14:15 07/30/16 09:37 (Namenda) 10 mg BID PO 07/17/16 13:45 07/30/16 09:37 (Desyrel) 400 mg HS PO 07/18/16 21:00 07/29/16 20:33 (ZyPREXA) 5 mg DAILY PO 07/24/16 09:00 07/30/16 09:37 (TEGretol) 200 mg DAILY PO 07/25/16 09:00 07/30/16 09:37 (ZyPREXA) 15 mg DAILY@16 PO 07/24/16 16:00 07/30/16 15:41 (TEGretol) 300 mg HS PO 07/24/16 21:00 07/29/16 20:34 (Pill Splitter) 1 ea UNSCH PRN OTHER 07/24/16 14:30 (Ativan) 0.5 mg Q6H PRN PO 07/28/16 15:00 07/30/16 17:51 Urinary Catheter: No Vascular Central Line Catheter: No A/P Problem List: (1) Delirium ICD Code: R41.0 Status: Acute (2) UTI (urinary tract infection) ICD Code: N39.0 Status: Acute (3) Dementia ICD Code: F03.90 Status: Acute Assessment and Plan Patient is a 61-year-old female with primary medical history of Alzheimer's disease stage III, bipolar disorder, anxiety, depression, dementia, seizure disorder, retrograde amnesia, hypothyroidism, hiatal hernia, GERD who came into the hospital for altered mental status. As per review of records, patient's medications has been changed increase. Alzheimer's stage III, dementia with behavioral disturbances - managed by psychiatry - Improved behavior Urinary tract infection, urine culture cw contamination - sp treatment with 1 dose of Ciprofloxacin IV in the ED LORRAINE on CKD 3 - Since 2006 creatinine has been 0.97 to 1.19 - Avoid nephrotoxins Hypothyroidism - Restart home medication levothyroxine 150 g - TSH checked within normal 2.940 Neck swelling - Check soft tissue neck - Swelling on right side of the neck has resolved and neck us is unremarkable. No further management. Will sign off - please reconsult if needed. DVT prop ambulation Problem Qualifiers (1) UTI (urinary tract infection): Qualified Code: N39.0 - Urinary tract infection without hematuria, site unspecified (2) Dementia: Qualified Code: F03.91 - Dementia with behavioral disturbance, unspecified dementia type Dayron Cole MD July 30, 2016 19:56
[2016-07-30] MEDS: TAMSULOSIN HCL 0.4 MG CAP PO SCH (21:44)
[2016-07-30] MEDS: traZODone HCL 100 MG TAB PO SCH (21:45)
[2016-07-31] MEDS: LEVOTHYROXINE SODIUM 150 MCG TAB PO SCH (05:33)
[2016-07-31 06:00] VITALS: BP 107/51; PULSE 66; RESP 18; TEMP 98.1; O2SAT 97
[2016-07-31] MEDS: carBAMazepine 200 MG TAB PO SCH ×2 (09:00→21:45)
[2016-07-31] MEDS: OLANZapine 5 MG TAB PO SCH (09:00)
[2016-07-31] MEDS: GALANTAMINE HYDROBROMIDE 4 MG TAB PO SCH ×2 (09:00→21:44)
[2016-07-31] MEDS: MEMANTINE HCL 10 MG TAB PO SCH ×2 (09:00→21:46)
--- NOTE | 2016-07-31 16:20 | HHI.PYPN ---
Subjective Remarks Patient seen in day room with nurse Fer, chart reviewed. Patient quite alert intense clapping hands and slapping hands on her tray. Patient compliant medications. Will increase a.m. Zyprexa to 10 mg. Continue other medications no change Review of Systems Except as stated in HPI: all other systems reviewed are Neg Objective Alert: Yes [place]: Person (disoriented) Mood: Calm Affect: Restricted Memory Intact: Comment (Suspect significantly impaired) Hallucinations: Other (Unable to assess) Delusions: No Delusion Type: Other (Unable to assess) Suicidal: Ideation (Unable to assess) Homicidal: Ideation (Unable to assess) Insight/Judgment Poor Vitals/IOs Vital Signs Date Time Temp Pulse Resp B/P Pulse Ox O2 Delivery O2 Flow Rate FiO2 07/31/16 06:00 98.1 66 18 107/51 97 Intake and Output 07/30/16 07/30/16 07/30/16 07:59 15:59 23:59 Intake Total 1080 ml 840 ml Balance 1080 ml 840 ml Assessment & Plan Problem List: (1) Dementia ICD Code: F03.90 (2) History of traumatic brain injury ICD Code: Z87.820 Assessment & Plan Estimated LOS: days patient continues confused disorganized, with continue behavioral issues. See medication adjustment above Justification for Cont. Inpt. At this time patient will decompensate placed on the lower level of care Discharge Planning To be determined Request HC Surrog/Guard Advoc?: Yes Problem Qualifiers (1) Dementia: Qualified Code: F03.91 - Dementia with behavioral disturbance, unspecified dementia type Jordan Suárez MD July 31, 2016 16:20
[2016-07-31 18:22] VITALS: BP 140/74; PULSE 90; RESP 17; TEMP 97.8; O2SAT 94
[2016-07-31] MEDS: traZODone HCL 100 MG TAB PO SCH (21:45)
[2016-07-31] MEDS: TAMSULOSIN HCL 0.4 MG CAP PO SCH (21:46)
[2016-08-01] MEDS: LEVOTHYROXINE SODIUM 150 MCG TAB PO SCH (05:05)
[2016-08-01 05:32] VITALS: BP 121/50; PULSE 68; RESP 16; TEMP 99; O2SAT 94
[2016-08-01] MEDS: GALANTAMINE HYDROBROMIDE 4 MG TAB PO SCH ×2 (09:08→21:23)
[2016-08-01] MEDS: MEMANTINE HCL 10 MG TAB PO SCH ×2 (09:08→21:24)
[2016-08-01] MEDS: OLANZapine 10 MG TAB PO SCH (09:09)
[2016-08-01] MEDS: carBAMazepine 200 MG TAB PO SCH ×2 (09:09→21:24)
--- NOTE | 2016-08-01 09:49 | HHI.PYPN ---
Subjective Remarks Patient seen in day room with nurse Nadeen, chart reviewed. Patient compliant medications. Had first dose of increased Zyprexa this a.m. Patient alert continues confused continues with some occasional clapping and hitting of the tray for now continue treatment no change Review of Systems Except as stated in HPI: all other systems reviewed are Neg Objective Alert: Yes [place]: Person (disoriented) Mood: Calm Affect: Restricted Memory Intact: Comment (Suspect significantly impaired) Hallucinations: Other (Unable to assess) Delusions: No Delusion Type: Other (Unable to assess) Suicidal: Ideation (Unable to assess) Homicidal: Ideation (Unable to assess) Insight/Judgment Poor Vitals/IOs Vital Signs Date Time Temp Pulse Resp B/P Pulse Ox O2 Delivery O2 Flow Rate FiO2 08/01/16 05:32 99.0 68 16 121/50 94 Intake and Output 07/31/16 07/31/16 08/01/16 08:00 16:00 00:00 Intake Total 240 ml 1680 ml 720 ml Balance 240 ml 1680 ml 720 ml Assessment & Plan Problem List: (1) Dementia ICD Code: F03.90 (2) History of traumatic brain injury ICD Code: Z87.820 Assessment & Plan Estimated LOS: days patient continues confused labile. Is tolerating the adjustment medication made yesterday. For now continue treatment Justification for Cont. Inpt. At this time patient will decompensate placed on the lower level of care Discharge Planning To be determined Request HC Surrog/Guard Advoc?: Yes Problem Qualifiers (1) Dementia: Qualified Code: F03.91 - Dementia with behavioral disturbance, unspecified dementia type Jordan Suárez MD August 01, 2016 09:49
[2016-08-01 16:00] VITALS: RESP 18; TEMP 98.5; O2SAT 95
[2016-08-01 20:08] VITALS: BP 163/99; PULSE 85
[2016-08-01] MEDS: LORazepam 1 MG TAB PO PRN (21:24)
[2016-08-01] MEDS: traZODone HCL 100 MG TAB PO SCH (21:24)
[2016-08-01] MEDS: TAMSULOSIN HCL 0.4 MG CAP PO SCH (21:24)
[2016-08-02 05:30] VITALS: BP 115/55; PULSE 66; RESP 16; TEMP 96.8
[2016-08-02] MEDS: LEVOTHYROXINE SODIUM 150 MCG TAB PO SCH (05:38)
[2016-08-02] MEDS: MEMANTINE HCL 10 MG TAB PO SCH ×2 (09:06→21:18)
[2016-08-02] MEDS: GALANTAMINE HYDROBROMIDE 4 MG TAB PO SCH ×2 (09:06→21:19)
[2016-08-02] MEDS: OLANZapine 10 MG TAB PO SCH (09:07)
[2016-08-02] MEDS: carBAMazepine 200 MG TAB PO SCH ×2 (09:07→21:18)
[2016-08-02] MEDS: LORazepam 1 MG TAB PO PRN ×2 (12:42→21:18)
--- NOTE | 2016-08-02 15:23 | HHI.PYPN ---
Subjective Remarks Patient seen in day room with nurse Nadeen, chart review. Patient sitting calmly in Lynne chair does respond briefly to questions and quiet voice. No clamping or slapping of hands noted at this time Review of Systems Except as stated in HPI: all other systems reviewed are Neg Objective Alert: Yes [place]: Person (disoriented) Mood: Calm Affect: Restricted Memory Intact: Comment (Suspect significantly impaired) Hallucinations: Other (Unable to assess) Delusions: No Delusion Type: Other (Unable to assess) Suicidal: Ideation (Unable to assess) Homicidal: Ideation (Unable to assess) Insight/Judgment Very poor Vitals/IOs Vital Signs Date Time Temp Pulse Resp B/P Pulse Ox O2 Delivery O2 Flow Rate FiO2 08/02/16 05:30 96.8 66 16 115/55 08/01/16 16:00 95 Intake and Output 08/01/16 08/01/16 08/02/16 08:00 16:00 00:00 Intake Total 480 ml 1560 ml 1650 ml Balance 480 ml 1560 ml 1650 ml Assessment & Plan Problem List: (1) Dementia ICD Code: F03.90 (2) History of traumatic brain injury ICD Code: Z87.820 Assessment & Plan Estimated LOS: days patient continues confused labile behavior clapping and slapping, though it appears somewhat softer today. Compliant medications Justification for Cont. Inpt. This time patient will decompensate placed in a lower level of care Discharge Planning To be determined Request HC Surrog/Guard Advoc?: Yes Problem Qualifiers (1) Dementia: Qualified Code: F03.91 - Dementia with behavioral disturbance, unspecified dementia type Jordan Suárez MD August 02, 2016 15:23
[2016-08-02 17:35] VITALS: BP 136/68; PULSE 81; RESP 17; TEMP 97.4; O2SAT 99
[2016-08-02] MEDS: traZODone HCL 100 MG TAB PO SCH (21:18)
[2016-08-02] MEDS: TAMSULOSIN HCL 0.4 MG CAP PO SCH (21:18)
[2016-08-03] MEDS: LEVOTHYROXINE SODIUM 150 MCG TAB PO SCH (05:47)
[2016-08-03 06:46] VITALS: BP 139/65; PULSE 66; RESP 16; TEMP 96.3; O2SAT 100
[2016-08-03] MEDS: carBAMazepine 200 MG TAB PO SCH ×2 (09:58→20:50)
[2016-08-03] MEDS: GALANTAMINE HYDROBROMIDE 4 MG TAB PO SCH ×2 (09:58→20:49)
[2016-08-03] MEDS: MEMANTINE HCL 10 MG TAB PO SCH ×2 (09:58→20:50)
[2016-08-03] MEDS: OLANZapine 10 MG TAB PO SCH (09:58)
--- NOTE | 2016-08-03 12:45 | HHI.PYPN ---
Subjective Remarks Patient seen in day room with her . Discussed with patient is behaviors and his expectations. Intensity ground her more and reality that her goal is not to extinguish the behaviors as much as to soften their frequency intensity and duration. He seemed to understand that. Patient has been calm this morning with no significant behavioral issues noted. She is compliant with her medication. For now continue treatment. We discussed with the also her returning home. He says there doing some modifying and a creatinine with a house. If patient is to do well for next week consider discharge some time towards the end of next week Review of Systems Except as stated in HPI: all other systems reviewed are Neg Objective Alert: Yes [place]: Person (disoriented) Mood: Calm Affect: Restricted Memory Intact: Comment (Suspect significantly impaired) Hallucinations: Other (Unable to assess) Delusions: No Delusion Type: Other (Unable to assess) Suicidal: Ideation (Unable to assess) Homicidal: Ideation (Unable to assess) Insight/Judgment Very poor Vitals/IOs Vital Signs Date Time Temp Pulse Resp B/P Pulse Ox O2 Delivery O2 Flow Rate FiO2 08/03/16 06:46 96.3 66 16 139/65 100 Intake and Output 08/02/16 08/02/16 08/03/16 08:00 16:00 00:00 Intake Total 630 ml Balance 630 ml Assessment & Plan Problem List: (1) Dementia ICD Code: F03.90 (2) History of traumatic brain injury ICD Code: Z87.820 Assessment & Plan Estimated LOS: days patient behaviors softened somewhat, continues confused with cognitive disability. For now continue treatment Justification for Cont. Inpt. This time patient will decompensate if placed in a lower level of care Discharge Planning To be determined Request HC Surrog/Guard Advoc?: Yes Problem Qualifiers (1) Dementia: Qualified Code: F03.91 - Dementia with behavioral disturbance, unspecified dementia type Jordan Suárez MD August 03, 2016 12:45
[2016-08-03 17:48] VITALS: BP 140/63; PULSE 91; RESP 20; TEMP 97.2; O2SAT 100
[2016-08-03] MEDS: LORazepam 1 MG TAB PO PRN (20:50)
[2016-08-03] MEDS: TAMSULOSIN HCL 0.4 MG CAP PO SCH (20:50)
[2016-08-03] MEDS: traZODone HCL 100 MG TAB PO SCH (20:50)
[2016-08-04] MEDS: LEVOTHYROXINE SODIUM 150 MCG TAB PO SCH (05:44)
[2016-08-04 06:00] VITALS: BP 107/70; PULSE 79; RESP 16; TEMP 97.5
[2016-08-04] MEDS: GALANTAMINE HYDROBROMIDE 4 MG TAB PO SCH ×2 (08:39→20:19)
[2016-08-04] MEDS: carBAMazepine 200 MG TAB PO SCH ×2 (08:40→20:20)
[2016-08-04] MEDS: MEMANTINE HCL 10 MG TAB PO SCH ×2 (08:40→20:20)
[2016-08-04] MEDS: OLANZapine 10 MG TAB PO SCH (08:40)
[2016-08-04] MEDS: LORazepam 1 MG TAB PO PRN ×2 (10:11→17:35)
--- NOTE | 2016-08-04 11:59 | HHI.PYPN ---
Subjective Remarks Pt seen and discussed with staff. She had some agitation this morning and was given ativan which calmed pt. She has been compliant with medications and tolerating without side effects. Objective Alert: Yes [place]: Person (disoriented) Mood: Calm Affect: Restricted Memory Intact: Comment (impaired) Hallucinations: Other (does not appear to be responding internally) Delusions: No Delusion Type: Other (Unable to assess) Suicidal: Ideation (Unable to assess) Homicidal: Ideation (Unable to assess) Insight/Judgment poor Remarks no abnormal movements Vitals/IOs Vital Signs Date Time Temp Pulse Resp B/P Pulse Ox O2 Delivery O2 Flow Rate FiO2 08/04/16 06:00 97.5 79 16 107/70 08/03/16 17:48 100 Intake and Output 08/03/16 08/03/16 08/04/16 08:00 16:00 00:00 Intake Total 0 ml 540 ml 1320 ml Balance 0 ml 540 ml 1320 ml Assessment & Plan Problem List: (1) Dementia ICD Code: F03.90 (2) History of traumatic brain injury ICD Code: Z87.820 Assessment & Plan Continue current tx plan. Estimated LOS: days Justification for Cont. Inpt. impairments in self care Request HC Surrog/Guard Advoc?: Yes Problem Qualifiers (1) Dementia: Qualified Code: F03.91 - Dementia with behavioral disturbance, unspecified dementia type Zohreh Bowman MD August 04, 2016 11:59
[2016-08-04 18:00] VITALS: BP 169/94; PULSE 94; RESP 18; TEMP 98.2; O2SAT 98
[2016-08-04] MEDS: TAMSULOSIN HCL 0.4 MG CAP PO SCH (20:20)
[2016-08-04] MEDS: traZODone HCL 100 MG TAB PO SCH (20:20)
[2016-08-05] MEDS: LEVOTHYROXINE SODIUM 150 MCG TAB PO SCH (04:54)
[2016-08-05] MEDS: LORazepam 1 MG TAB PO PRN (04:55)
[2016-08-05 06:12] VITALS: BP 145/75; PULSE 74; RESP 17; TEMP 98.2; O2SAT 100
[2016-08-05] MEDS: carBAMazepine 200 MG TAB PO SCH ×2 (09:49→20:31)
[2016-08-05] MEDS: GALANTAMINE HYDROBROMIDE 4 MG TAB PO SCH ×2 (09:49→20:30)
[2016-08-05] MEDS: MEMANTINE HCL 10 MG TAB PO SCH ×2 (09:49→20:30)
[2016-08-05] MEDS: OLANZapine 10 MG TAB PO SCH (09:49)
--- NOTE | 2016-08-05 13:20 | HHI.PYPN ---
Subjective Remarks Pt seen and discussed with staff. She has been calm and cooperative today. Compliant with medications. No SI/HI. Objective Alert: Yes [place]: Person Mood: Calm Affect: Restricted Memory Intact: Comment (impaired) Hallucinations: Other (does not appear to be responding internally) Delusions: No Delusion Type: Other (Unable to assess) Suicidal: Ideation (Unable to assess) Homicidal: Ideation (Unable to assess) Insight/Judgment poor Vitals/IOs Vital Signs Date Time Temp Pulse Resp B/P Pulse Ox O2 Delivery O2 Flow Rate FiO2 08/05/16 06:12 98.2 74 17 145/75 100 Intake and Output 08/04/16 08/04/16 08/04/16 07:59 15:59 23:59 Intake Total 360 ml 1200 ml Balance 360 ml 1200 ml Assessment & Plan Problem List: (1) Dementia ICD Code: F03.90 (2) History of traumatic brain injury ICD Code: Z87.820 Assessment & Plan Continue current tx plan. Estimated LOS: days Justification for Cont. Inpt. risk of decompensation Request HC Surrog/Guard Advoc?: Yes Problem Qualifiers (1) Dementia: Qualified Code: F03.91 - Dementia with behavioral disturbance, unspecified dementia type Zohreh Bowman MD August 05, 2016 1:20 pm
[2016-08-05 20:01] VITALS: BP 126/59; PULSE 98; RESP 18; TEMP 98; O2SAT 99
[2016-08-05] MEDS: TAMSULOSIN HCL 0.4 MG CAP PO SCH (20:30)
[2016-08-05] MEDS: traZODone HCL 100 MG TAB PO SCH (20:30)
[2016-08-06] MEDS: LORazepam 1 MG TAB PO PRN ×2 (04:00→21:17)
[2016-08-06 05:41] VITALS: BP 148/66; PULSE 72; RESP 18; TEMP 97.6; O2SAT 96
[2016-08-06] MEDS: LEVOTHYROXINE SODIUM 150 MCG TAB PO SCH (05:41)
[2016-08-06] MEDS: GALANTAMINE HYDROBROMIDE 4 MG TAB PO SCH ×2 (08:26→21:17)
[2016-08-06] MEDS: carBAMazepine 200 MG TAB PO SCH ×2 (08:26→21:18)
[2016-08-06] MEDS: MEMANTINE HCL 10 MG TAB PO SCH ×2 (08:26→21:18)
[2016-08-06] MEDS: OLANZapine 10 MG TAB PO SCH (08:26)
--- NOTE | 2016-08-06 09:23 | HHI.PYPN ---
Subjective Remarks Patient seen in day room with floor staff, patient initially calm quiet pleasantly confused with me however staff does state that patient showing some clapping behaviors more towards the evening. When I mentioned clapping patient did start clapping though not as vigorous as this noted in the past. There is no self mutilative slapping her hitting noted. Patient compliant medications. For now continue treatment Review of Systems Except as stated in HPI: all other systems reviewed are Neg Objective Alert: Yes [place]: Person Mood: Calm Affect: Restricted Memory Intact: Comment (impaired) Hallucinations: Other (does not appear to be responding internally) Delusions: No Delusion Type: Other (Unable to assess) Suicidal: Ideation (Unable to assess) Homicidal: Ideation (Unable to assess) Insight/Judgment Very poor Vitals/IOs Vital Signs Date Time Temp Pulse Resp B/P Pulse Ox O2 Delivery O2 Flow Rate FiO2 08/06/16 05:41 97.6 72 18 148/66 96 Intake and Output 08/05/16 08/05/16 08/05/16 07:59 15:59 23:59 Intake Total 840 ml 240 ml Balance 840 ml 240 ml Assessment & Plan Problem List: (1) Dementia ICD Code: F03.90 (2) History of traumatic brain injury ICD Code: Z87.820 Assessment & Plan Estimated LOS: days patient continues confused disoriented locational clapping and hitting tray behaviors. Though the frequency intensity and duration seems to be softening. For now continue treatment Justification for Cont. Inpt. At this time patient will decompensate the placed in a lower level of care Discharge Planning To be determined Request HC Surrog/Guard Advoc?: Yes Problem Qualifiers (1) Dementia: Qualified Code: F03.91 - Dementia with behavioral disturbance, unspecified dementia type Jordan Suárez MD August 06, 2016 09:23
[2016-08-06 18:23] VITALS: BP 160/80; PULSE 91; RESP 18; TEMP 98.2; O2SAT 99
[2016-08-06] MEDS: traZODone HCL 100 MG TAB PO SCH (21:18)
[2016-08-06] MEDS: TAMSULOSIN HCL 0.4 MG CAP PO SCH (21:18)
[2016-08-07] MEDS: LORazepam 1 MG TAB PO PRN ×2 (02:53→20:54)
[2016-08-07] MEDS: LEVOTHYROXINE SODIUM 150 MCG TAB PO SCH (05:42)
[2016-08-07 06:11] VITALS: BP 96/50; PULSE 65; RESP 20; TEMP 98.2; O2SAT 99
[2016-08-07] MEDS: carBAMazepine 200 MG TAB PO SCH ×2 (08:55→20:55)
[2016-08-07] MEDS: MEMANTINE HCL 10 MG TAB PO SCH ×2 (08:55→20:54)
[2016-08-07] MEDS: OLANZapine 10 MG TAB PO SCH (08:56)
[2016-08-07] MEDS: GALANTAMINE HYDROBROMIDE 4 MG TAB PO SCH ×2 (08:56→20:55)
--- NOTE | 2016-08-07 14:47 | HHI.PYPN ---
Subjective Remarks Patient seen in day room with her staff, chart review, patient compliant medications. At time of this assessment patient quietly sitting in a Lynne chair dosing somewhat but arousable to pleasant or hitting her tray noted at this time Review of Systems Except as stated in HPI: all other systems reviewed are Neg Objective Alert: Yes [place]: Person Mood: Calm Affect: Restricted Memory Intact: Comment (impaired) Hallucinations: Other (does not appear to be responding internally) Delusions: No Delusion Type: Other (Unable to assess) Suicidal: Ideation (Unable to assess) Homicidal: Ideation (Unable to assess) Insight/Judgment Very poor Vitals/IOs Vital Signs Date Time Temp Pulse Resp B/P Pulse Ox O2 Delivery O2 Flow Rate FiO2 08/07/16 06:11 98.2 65 20 96/50 99 Intake and Output 08/06/16 08/06/16 08/07/16 08:00 16:00 00:00 Intake Total 1320 ml 1500 ml Balance 1320 ml 1500 ml Assessment & Plan Problem List: (1) Dementia ICD Code: F03.90 (2) History of traumatic brain injury ICD Code: Z87.820 Assessment & Plan Estimated LOS: days patient continues confused though behaviors has softened somewhat at the present time. For now continue treatment Justification for Cont. Inpt. At this time patient decompensate the placed at a lower level of care Discharge Planning To be determined Request HC Surrog/Guard Advoc?: Yes Problem Qualifiers (1) Dementia: Qualified Code: F03.91 - Dementia with behavioral disturbance, unspecified dementia type Jordan Suárez MD August 07, 2016 14:46
[2016-08-07 17:18] VITALS: BP 124/68; PULSE 80; RESP 18; TEMP 97.7
[2016-08-07] MEDS: TAMSULOSIN HCL 0.4 MG CAP PO SCH (20:54)
[2016-08-07] MEDS: traZODone HCL 100 MG TAB PO SCH (20:55)
[2016-08-08 05:54] VITALS: BP 116/80; PULSE 83; RESP 16; TEMP 97.9; O2SAT 93
[2016-08-08] MEDS: LEVOTHYROXINE SODIUM 150 MCG TAB PO SCH (06:07)
[2016-08-08] MEDS: GALANTAMINE HYDROBROMIDE 4 MG TAB PO SCH ×2 (09:47→20:31)
[2016-08-08] MEDS: MEMANTINE HCL 10 MG TAB PO SCH ×2 (09:47→20:31)
[2016-08-08] MEDS: carBAMazepine 200 MG TAB PO SCH ×2 (09:47→20:32)
[2016-08-08] MEDS: OLANZapine 10 MG TAB PO SCH (09:47)
--- NOTE | 2016-08-08 16:28 | HHI.PYPN ---
Subjective Remarks Patient seen in dayroom the floor staff, patient remains confused though the frequency and intensity of clapping his soften somewhat. Compliant medications. For now continue treatment Review of Systems Except as stated in HPI: all other systems reviewed are Neg Objective Alert: Yes [place]: Person Mood: Calm Affect: Restricted Memory Intact: Comment (impaired) Hallucinations: Other (does not appear to be responding internally) Delusions: No Delusion Type: Other (Unable to assess) Suicidal: Ideation (Unable to assess) Homicidal: Ideation (Unable to assess) Insight/Judgment Very poor Vitals/IOs Vital Signs Date Time Temp Pulse Resp B/P Pulse Ox O2 Delivery O2 Flow Rate FiO2 08/08/16 05:54 97.9 83 16 116/80 93 Intake and Output 08/07/16 08/07/16 08/08/16 08:00 16:00 00:00 Intake Total 510 ml Balance 510 ml Assessment & Plan Problem List: (1) Dementia ICD Code: F03.90 (2) History of traumatic brain injury ICD Code: Z87.820 Assessment & Plan Estimated LOS: days patient remains confused at times somewhat labile, though the frequency and intensity of the clapping appears to be diminishing Justification for Cont. Inpt. At this time patient will decompensate with placed in a lower level of care Discharge Planning To be determined Request HC Surrog/Guard Advoc?: Yes Problem Qualifiers (1) Dementia: Qualified Code: F03.91 - Dementia with behavioral disturbance, unspecified dementia type Jordan Suárez MD August 08, 2016 16:28
[2016-08-08 20:00] VITALS: BP 143/73; PULSE 79; RESP 18; TEMP 97
[2016-08-08] MEDS: TAMSULOSIN HCL 0.4 MG CAP PO SCH (20:30)
[2016-08-08] MEDS: traZODone HCL 100 MG TAB PO SCH (20:30)
[2016-08-09 05:16] VITALS: BP 147/67; PULSE 74; RESP 18; TEMP 97.5; O2SAT 96
[2016-08-09] MEDS: LEVOTHYROXINE SODIUM 150 MCG TAB PO SCH (06:13)
--- NOTE | 2016-08-09 08:59 | HHI.PYPN ---
Subjective Remarks Patient seen in day room with floor staff. Compliant medications. Patient continues confused disorganized though responding when questioned. With her poor eye contact. No clapping noted at the present time it appears to spend some decrease in her clapping through yesterday evening also Review of Systems Except as stated in HPI: all other systems reviewed are Neg Objective Alert: Yes [place]: Person Mood: Calm Affect: Restricted Memory Intact: Comment (impaired) Hallucinations: Other (does not appear to be responding internally) Delusions: No Delusion Type: Other (Unable to assess) Suicidal: Ideation (Unable to assess) Homicidal: Ideation (Unable to assess) Insight/Judgment Very poor Vitals/IOs Vital Signs Date Time Temp Pulse Resp B/P Pulse Ox O2 Delivery O2 Flow Rate FiO2 08/09/16 05:16 97.5 74 18 147/67 96 Intake and Output 08/08/16 08/08/16 08/09/16 08:00 16:00 00:00 Intake Total 940 ml 840 ml Balance 940 ml 840 ml Assessment & Plan Problem List: (1) Dementia ICD Code: F03.90 (2) History of traumatic brain injury ICD Code: Z87.820 Assessment & Plan Estimated LOS: days patient continues confused and disorganized, her clpping behaviors appear to be softening somewhat Justification for Cont. Inpt. At this time patient will decompensate with placed in a lower level of care Discharge Planning To be determined Request HC Surrog/Guard Advoc?: Yes Problem Qualifiers (1) Dementia: Qualified Code: F03.91 - Dementia with behavioral disturbance, unspecified dementia type Jordan Suárez MD Aug 09, 2016 08:59
[2016-08-09] MEDS: OLANZapine 10 MG TAB PO SCH (09:11)
[2016-08-09] MEDS: GALANTAMINE HYDROBROMIDE 4 MG TAB PO SCH ×2 (09:11→21:00)
[2016-08-09] MEDS: MEMANTINE HCL 10 MG TAB PO SCH ×2 (09:12→21:00)
[2016-08-09] MEDS: carBAMazepine 200 MG TAB PO SCH ×2 (09:12→21:00)
[2016-08-09 18:00] VITALS: BP 135/83; PULSE 92; RESP 16; TEMP 98.1; O2SAT 98
--- NOTE | 2016-08-09 20:43 | RADRPT ---
EXAM DATE/TIME: 08/09/2016 20:08 [facility] COMPARISON: CHEST SINGLE AP, July 14, 2016, 7:21. INDICATIONS : Cough. MEDICAL HISTORY : None. SURGICAL HISTORY : None. ENCOUNTER: Initial ACUITY: 1 day PAIN SCORE: Non-responsive. LOCATION: Bilateral chest FINDINGS: 2 portable frontal views of the chest show no infiltrate or effusion. Heart is normal in size. Bony s tructures are unremarkable. CONCLUSION: Normal examination. Yemi Ricci Jr., MD on August 09, 2016 at 20:41 Board Certified Radiologist. This report was verified electronically.
[2016-08-09] MEDS: TAMSULOSIN HCL 0.4 MG CAP PO SCH (21:00)
[2016-08-09] MEDS: traZODone HCL 100 MG TAB PO SCH (21:00)
[2016-08-10 06:00] VITALS: BP 128/78; PULSE 69; RESP 16; TEMP 96.7
[2016-08-10] MEDS: LEVOTHYROXINE SODIUM 150 MCG TAB PO SCH (06:00)
[2016-08-10] MEDS: OLANZapine 10 MG TAB PO SCH ×2 (09:00→16:44)
--- NOTE | 2016-08-10 13:41 | HHI.PYPN ---
Subjective Remarks Patient seen sitting in day room with floor staff, chart review, patient compliant medications. While patient's clapping continues appears the frequency intensity and duration her softening somewhat. Patient remains confused disoriented. For now continue treatment Review of Systems Except as stated in HPI: all other systems reviewed are Neg Objective Alert: Yes [place]: Person Mood: Calm Affect: Restricted Memory Intact: Comment (impaired) Hallucinations: Other (does not appear to be responding internally) Delusions: No Delusion Type: Other (Unable to assess) Suicidal: Ideation (Unable to assess) Homicidal: Ideation (Unable to assess) Insight/Judgment Very poor Vitals/IOs Vital Signs Date Time Temp Pulse Resp B/P Pulse Ox O2 Delivery O2 Flow Rate FiO2 08/10/16 06:00 96.7 69 16 128/78 08/09/16 18:00 98 Intake and Output 08/09/16 08/09/16 08/10/16 08:00 16:00 00:00 Intake Total 480 ml 600 ml 720 ml Balance 480 ml 600 ml 720 ml Assessment & Plan Problem List: (1) Dementia ICD Code: F03.90 (2) History of traumatic brain injury ICD Code: Z87.820 Assessment & Plan Estimated LOS: days patient continues with her TBI and behavioral issues, along with some vague confusion and the clapping behaviors though behaviors appear to be softening somewhat, compliant medication Justification for Cont. Inpt. At this time patient will decompensate, and placed a lower level of care Discharge Planning To be determined Request HC Surrog/Guard Advoc?: Yes Problem Qualifiers (1) Dementia: Qualified Code: F03.91 - Dementia with behavioral disturbance, unspecified dementia type Jordan Suárez MD Aug 10, 2016 13:41
[2016-08-10] MEDS: GALANTAMINE HYDROBROMIDE 4 MG TAB PO SCH ×2 (14:12→20:47)
[2016-08-10] MEDS: MEMANTINE HCL 10 MG TAB PO SCH ×2 (14:12→20:47)
[2016-08-10] MEDS: carBAMazepine 200 MG TAB PO SCH ×2 (14:12→20:46)
[2016-08-10 19:30] VITALS: BP 148/74; PULSE 77; RESP 16; TEMP 98.1; O2SAT 98
[2016-08-10] MEDS: traZODone HCL 100 MG TAB PO SCH (20:45)
[2016-08-10] MEDS: TAMSULOSIN HCL 0.4 MG CAP PO SCH (20:47)
[2016-08-11 05:40] VITALS: BP 183/85; PULSE 85; RESP 16; TEMP 98; O2SAT 96
[2016-08-11] MEDS: LEVOTHYROXINE SODIUM 150 MCG TAB PO SCH (06:00)
[2016-08-11 06:36] VITALS: BP 138/58
[2016-08-11] MEDS: carBAMazepine 200 MG TAB PO SCH ×2 (09:26→20:36)
[2016-08-11] MEDS: OLANZapine 5 MG TAB PO SCH (09:26)
[2016-08-11] MEDS: GALANTAMINE HYDROBROMIDE 4 MG TAB PO SCH ×2 (09:26→20:37)
[2016-08-11] MEDS: MEMANTINE HCL 10 MG TAB PO SCH ×2 (09:26→20:36)
--- NOTE | 2016-08-11 14:08 | HHI.PYPN ---
Subjective Remarks Pt seen and discussed with staff. she has been cooperative and pleasant. No agitation or behavior problems. Hand clapping persists. Objective Alert: Yes [place]: Person Mood: Calm Affect: Restricted Memory Intact: Comment (impaired) Hallucinations: Other (does not appear to be responding internally) Delusions: No Delusion Type: Other (Unable to assess) Suicidal: Ideation (Unable to assess) Homicidal: Ideation (Unable to assess) Insight/Judgment poor Vitals/IOs Vital Signs Date Time Temp Pulse Resp B/P Pulse Ox O2 Delivery O2 Flow Rate FiO2 08/11/16 06:36 138/58 08/11/16 05:40 98.0 85 16 96 Intake and Output 08/10/16 08/10/16 08/11/16 08:00 16:00 00:00 Intake Total 240 ml Balance 240 ml BP: 103/57 (08/11/2016 2:07pm) Assessment & Plan Problem List: (1) Dementia ICD Code: F03.90 (2) History of traumatic brain injury ICD Code: Z87.820 Assessment & Plan Continue current tx plan. Estimated LOS: days Justification for Cont. Inpt. risk of decompensation Request HC Surrog/Guard Advoc?: Yes Problem Qualifiers (1) Dementia: Qualified Code: F03.91 - Dementia with behavioral disturbance, unspecified dementia type Zohreh Bowman MD Aug 11, 2016 14:08
[2016-08-11] MEDS: OLANZapine 10 MG TAB PO SCH (16:56)
[2016-08-11 18:00] VITALS: BP 102/56; PULSE 63; RESP 17; TEMP 98.8; O2SAT 99
[2016-08-11] MEDS: traZODone HCL 100 MG TAB PO SCH (20:36)
[2016-08-11] MEDS: TAMSULOSIN HCL 0.4 MG CAP PO SCH (20:36)
[2016-08-12 05:58] VITALS: BP 118/56; PULSE 75; RESP 17; TEMP 98.8
[2016-08-12] MEDS: LEVOTHYROXINE SODIUM 150 MCG TAB PO SCH (06:05)
[2016-08-12] MEDS: GALANTAMINE HYDROBROMIDE 4 MG TAB PO SCH ×2 (09:16→20:38)
[2016-08-12] MEDS: OLANZapine 5 MG TAB PO SCH (09:16)
[2016-08-12] MEDS: LORazepam 1 MG TAB PO PRN (09:17)
[2016-08-12] MEDS: MEMANTINE HCL 10 MG TAB PO SCH ×2 (09:18→20:39)
[2016-08-12] MEDS: carBAMazepine 200 MG TAB PO SCH ×2 (09:18→20:39)
--- NOTE | 2016-08-12 12:14 | HHI.PYPN ---
Subjective Remarks Pt seen and discussed with staff. Pt was agitated earlier but calmed with lorazepam. Compliant with medications. No SI/HI Objective Alert: Yes [place]: Person Mood: Calm Affect: Restricted Memory Intact: Comment (impaired) Hallucinations: Other (does not appear to be responding internally) Delusions: No Delusion Type: Other (Unable to assess) Suicidal: Ideation (Unable to assess) Homicidal: Ideation (Unable to assess) Insight/Judgment poor Vitals/IOs Vital Signs Date Time Temp Pulse Resp B/P Pulse Ox O2 Delivery O2 Flow Rate FiO2 08/12/16 05:58 98.8 75 17 118/56 08/11/16 18:00 99 Intake and Output 08/11/16 08/11/16 08/12/16 08:00 16:00 00:00 Intake Total 360 ml 720 ml 960 ml Balance 360 ml 720 ml 960 ml Assessment & Plan Problem List: (1) Dementia ICD Code: F03.90 (2) History of traumatic brain injury ICD Code: Z87.820 Assessment & Plan Continue current tx plan. Estimated LOS: days Justification for Cont. Inpt. agitation Request HC Surrog/Guard Advoc?: Yes Problem Qualifiers (1) Dementia: Qualified Code: F03.91 - Dementia with behavioral disturbance, unspecified dementia type Zohreh Bowman MD Aug 12, 2016 12:14
[2016-08-12] MEDS: OLANZapine 10 MG TAB PO SCH (16:27)
[2016-08-12 18:55] VITALS: BP 150/71; PULSE 80; RESP 18; TEMP 98.9
[2016-08-12] MEDS: traZODone HCL 100 MG TAB PO SCH (20:38)
[2016-08-12] MEDS: TAMSULOSIN HCL 0.4 MG CAP PO SCH (20:39)
[2016-08-12 22:55] LABS: BLOOD, URINE NEG (NEG); GLUCOSE,URINE NEG (NEG); KETONE, URINE NEG (NEG); NITRITE,URINE NEG (NEG); URINE COLOR YELLOW (YELLW/STRAW)
[2016-08-12 23:12] LABS: BACTERIA, URINE MANY /hpf; COMMENT (UR) CULTURE INDICATED; CULTURE IF INDICATED CULTURE INDICATED; SQUAMOUS EPITHELIAL CELL URINE > 8 /hpf (0-5)
[2016-08-13] MEDS: LEVOTHYROXINE SODIUM 150 MCG TAB PO SCH (06:00)
[2016-08-13 06:09] VITALS: BP 105/52; PULSE 59; RESP 18; TEMP 98.1; O2SAT 99
[2016-08-13] MEDS: carBAMazepine 200 MG TAB PO SCH ×2 (09:37→21:23)
[2016-08-13] MEDS: MEMANTINE HCL 10 MG TAB PO SCH ×2 (09:37→21:23)
[2016-08-13] MEDS: GALANTAMINE HYDROBROMIDE 4 MG TAB PO SCH ×2 (09:37→21:22)
[2016-08-13] MEDS: OLANZapine 5 MG TAB PO SCH (09:37)
--- NOTE | 2016-08-13 11:32 | PD.TTN ---
Present for Treatment Team Treatment Team Staff: Provider (Dr. Suárez), Nurse (Janine), Psych Therapist ( Maria Guadalupe), Other (Mesha Albarado, [employer]) Patient Problems 1. Discharge planning 2. Medication compliance 3. Knowledge deficit 4. Lack of coping skills Progress Toward Goals Provider Input: Medication ahve been lowered and patient is more alert. Patient is still hand clapping. Nurse Input: Patient is noted to be more verbal, though nothing of substance. Patient has no behavioral issues and is continuing hand clapping. Psych Therapist Input: Patient is pleasant and alert. Patient is not oriented to situation or place. Family meeting is set up tomorrow with to discuss discharge planning. Maria Guadalupe [facility]aid [facility] Aug 13, 2016 11:32
--- NOTE | 2016-08-13 15:35 | HHI.PYPN ---
Subjective Remarks Patient discussed with treatment team, patient seen on unit, chart review, patient appears somewhat more alert today she certainly is more verbalwas speaking word salad and nonsensical verbalizations. It appears to be less clapping noted today. She continues compliant with medication. For now continue treatment Review of Systems Except as stated in HPI: all other systems reviewed are Neg Objective Alert: Yes [place]: Person Mood: Calm Affect: Restricted Memory Intact: Comment (impaired) Hallucinations: Other (does not appear to be responding internally) Delusions: No Delusion Type: Other (Unable to assess) Suicidal: Ideation (Unable to assess) Homicidal: Ideation (Unable to assess) Insight/Judgment Poor Labs Test 08/12/16 21:20 Urine Color YELLOW Urine Turbidity HAZY Urine pH 6.0 Urine Specific [place] 1.025 Urine Protein 30 mg/dL Urine Glucose (UA) NEG mg/dL Urine Ketones NEG mg/dL Urine Occult Blood NEG Urine Nitrite NEG Urine Bilirubin NEG Urine Urobilinogen 4.0 MG/DL Urine Leukocyte Esterase SMALL Urine WBC 25-49 /hpf Urine Squamous Epithelial > 8 /hpf Cells Urine Bacteria MANY /hpf Microscopic Urinalysis Comment CULTURE INDICATED Date/Time Procedure Status Source Growth 08/12/16 21:20 Urine Culture - Preliminary Resulted Urine Clean Catch IMMATURE GROWTH - REINCUBATE Vitals/IOs Vital Signs Date Time Temp Pulse Resp B/P Pulse Ox O2 Delivery O2 Flow Rate FiO2 08/13/16 06:09 98.1 59 18 105/52 99 Intake and Output 08/12/16 08/12/16 08/13/16 08:00 16:00 00:00 Intake Total 0 ml 480 ml 375 ml Balance 0 ml 480 ml 375 ml Assessment & Plan Problem List: (1) Dementia ICD Code: F03.90 (2) History of traumatic brain injury ICD Code: Z87.820 Assessment & Plan Estimated LOS: days patient continues cognitive timidly disturbed confused disoriented, she is somewhat more alert with the education adjustments made last week, though she is also more verbal and loud Justification for Cont. Inpt. At this time patient will decompensate the placed in a lower level of care Discharge Planning To be determined Request HC Surrog/Guard Advoc?: Yes Problem Qualifiers (1) Dementia: Qualified Code: F03.91 - Dementia with behavioral disturbance, unspecified dementia type Jordan Suárez MD Aug 13, 2016 15:35
[2016-08-13] MEDS: OLANZapine 10 MG TAB PO SCH (16:00)
[2016-08-13 18:00] VITALS: BP 116/71; PULSE 99; RESP 18; TEMP 97.6; O2SAT 96
[2016-08-13] MEDS: LORazepam 1 MG TAB PO PRN (18:11)
[2016-08-13] MEDS: traZODone HCL 100 MG TAB PO SCH (21:22)
[2016-08-13] MEDS: TAMSULOSIN HCL 0.4 MG CAP PO SCH (21:23)
[2016-08-14 05:47] VITALS: BP 117/60; PULSE 63; RESP 16; TEMP 97.3; O2SAT 97
[2016-08-14] MEDS: LEVOTHYROXINE SODIUM 150 MCG TAB PO SCH (06:21)
[2016-08-14] MEDS: OLANZapine 5 MG TAB PO SCH (09:15)
[2016-08-14] MEDS: GALANTAMINE HYDROBROMIDE 4 MG TAB PO SCH ×2 (09:15→21:10)
[2016-08-14] MEDS: carBAMazepine 200 MG TAB PO SCH ×2 (09:15→21:09)
[2016-08-14] MEDS: MEMANTINE HCL 10 MG TAB PO SCH ×2 (09:16→21:08)
[2016-08-14] MEDS ORDERED: TRAZ300T2 PO (09:28)
[2016-08-14] MEDS ORDERED: TAMS5CAP PO (09:28)
[2016-08-14] MEDS ORDERED: LORA-474 PO (09:28)
[2016-08-14] MEDS ORDERED: LEVO.15 PO (09:28)
[2016-08-14] MEDS ORDERED: NAME10TA PO (09:28)
[2016-08-14] MEDS ORDERED: GALA8TAB PO (09:28)
[2016-08-14] MEDS ORDERED: TEGR200T PO (09:28)
[2016-08-14] MEDS ORDERED: OLAN5TAB PO (09:28)
--- NOTE | 2016-08-14 09:46 | HHI.DS ---
Psychiatry Discharge Summary Inpatient Psychiatric care?: Yes Advance Directive: No Reason Not Provided: Due to Patient Condition Mental Health AdvanceDirective: No Health Care Proxy: Yes Admission Admission Date July 17, 2016 at 08:49 Admission Diagnosis: (1) History of traumatic brain injury ICD Code: Z87.820 Brief History The patient is a 61-year-old woman, domicile with her , with psychiatric history of early onset dementia, no previous psychiatric hospitalizations, no previous suicidal attempts, she is on olanzapine 10 mg, trazodone 200 mg, Tegretol 200 mg, Namenda 10 mg, Aricept 10 mg, medical history hypothyroidism, who presents to the emergency department via EMS as a Mclean act. The patient apparently has a history of dementia with progressive symptoms over the last several months. The patient was evaluated in the emergency department several days ago where she had a liver in workup which was negative. According to the Mclean act the patient has been increasingly agitated and striking herself, appears to be a threat to herself. On psychiatric evaluation patient is seen to be hyperactive, disorganized, perseveringly clapping her hands about every 1-2 minutes. Patient can follow simple commands, but is unable to sustain a conversation and answer questions. She doesn't provide any meaningful information for the psychiatric evaluation at this moment. However, her Mr. Darvin Simeon, states that the patient has been increasingly and progressively agitated to the point that he is very difficult to him to control her and take care of her. He says that she takes all her medications, but they do not seem to be enough. She is not aggressive, but restless, and continuously clapping her hands "sometimes I am afraid that she is going to hurt herself". Tobacco Use In Past 30 Days: Refused To Answer Alcohol Use: Never Hospital Course Patient behaviors cognitive deficits initially presented frequently intensely with clapping of hands pounding on tray and hitting self in arms and head. They Diminished with titration of the medication. However was also some sedation that her family felt was a little excessive so we did adjust the medications last week. Patient is now more alert though behaviors are still softened. There is more verbal output though is markedly disorganized. We have had multiple meetings with the patient's family. Meeting today with patient's . He feels she is reach her baseline. He has been arrangements to have intense home health care available. He feels she is ready to return home. Like there were discharge tomorrow morning early to him so he can take her to the [place] clinic for the processing and care. I agree with that. Thus patient will be discharged tomorrow morning with Rx 1 month we will also make referral for home health care psych nurse follow-up [place] outpatient Results Blood Pressure 117 / 60 Vital Signs Date Time Temp Pulse Resp B/P Pulse Ox O2 Delivery O2 Flow Rate FiO2 08/14/16 05:47 97.3 63 16 117/60 97 Laboratory Tests Test 08/12/16 21:20 Urine Turbidity HAZY (CLEAR) Urine Protein 30 mg/dL (NEG-TRACE) Urine Urobilinogen 4.0 MG/DL (LESS THAN 2.0) Urine Leukocyte Esterase SMALL (NEG) Urine WBC 25-49 /hpf (0-5) Urine Squamous Epithelial > 8 /hpf (0-5) Cells Urine Bacteria MANY /hpf (NONE) Summary of Procedures None done Imaging Last Impressions Chest X-Ray 08/09/16 0000 Signed Impressions: Service Date/Time: August 20:08 - CONCLUSION: Normal examination. Yemi Ricci Jr., MD Neck Ultrasound 07/29/16 0000 Signed Impressions: Service Date/Time: Friday, July 29, 2016 21:14 - CONCLUSION: Normal right neck soft tissue ultrasound. Jordan Barkley MD Head CT 07/16/16 0000 Signed Impressions: Service Date/Time: Saturday, July 16, 2016 17:37 - CONCLUSION: Generalized atrophy advanced for age. Stable evaluation without evidence of acute infarct, hemorrhage, mass or edema. Fredy Rhodes MD Pending results at discharge: No Medications # of Antipsychotic meds at D/C: 1 Approp Antipsych med options 1 - Minimum of three failed multiple trials of monotherapy. 2 - Documented plan to taper to monotherapy due to previous use of multiple meds OR cross-taper in progress at D/C. 3 - Documentation of augmentation of Clozapine. 4 - Justification other than those listed in allowable values 1-3, document here : Discharge Discharge Date: Aug 15, 2016 Discharge Diagnosis: (1) History of traumatic brain injury Diagnosis: Principal ICD Code: Z87.820 Mental Status Exam at Disch Alert white female markedly significantly cognitively impaired sitting in Lynne chair needing assistance with ambulation, speech is nonsensical babbling, mood is euthymic elevated to somewhat labile no auditory or visual hallucinations noted no delusions noted insight and judgment is nil cognition is markedly impaired Pt Condition on Discharge: Stable Discharge Disposition: Discharge Home Discharge Instructions Diet Instructions: As Tolerated, No Restrictions Activities you can perform: Regular-No Restrictions Scheduled Appointment: [place] outpatient clinic Discharge Time > 30 minutes Discharge/Advance Care Plan Health Problems: (1) Dementia (2) History of traumatic brain injury Goals to promote your health * To prevent worsening of your condition and complications * To maintain your health at the optimal level Directions to meet your goals Take your medications as prescribed Follow your dietary instruction Follow activity as directed Keep your appointments as scheduled Take your immunizations and boosters as scheduled If your symptoms worsen call your PCP, if no PCP go to Urgent Care Center or Emergency Room For 01/10 questions related to your inpatient stay or results of tests pending at discharge, please contact Dr. Jordan Suárez at Smoking is Dangerous to Your Health. Avoid second hand smoking Jordan Suárez MD Aug 14, 2016 09:45
[2016-08-14] MEDS: LORazepam 1 MG TAB PO PRN ×2 (12:31→21:07)
[2016-08-14] MEDS: OLANZapine 10 MG TAB PO SCH (16:12)
[2016-08-14 18:01] VITALS: BP 127/62; PULSE 91; RESP 16; TEMP 97.5; O2SAT 99
[2016-08-14] MEDS: traZODone HCL 100 MG TAB PO SCH (21:04)
[2016-08-14] MEDS: TAMSULOSIN HCL 0.4 MG CAP PO SCH (21:09)
[2016-08-15 05:29] VITALS: BP 123/57; PULSE 62; RESP 18; TEMP 97.6; O2SAT 97
[2016-08-15] MEDS: LEVOTHYROXINE SODIUM 150 MCG TAB PO SCH (06:15)
[2016-08-15] MEDS: OLANZapine 5 MG TAB PO SCH (09:17)
[2016-08-15] MEDS: MEMANTINE HCL 10 MG TAB PO SCH (09:17)
[2016-08-15] MEDS: carBAMazepine 200 MG TAB PO SCH (09:18)
[2016-08-15] MEDS: GALANTAMINE HYDROBROMIDE 4 MG TAB PO SCH (09:18)
--- NOTE | 2016-08-15 09:46 | HHI.PYPN ---
Subjective Remarks Patient seen in dayroom with moist staff, patient alert diffusely confused somewhat babbling speech, strength her increased activation though her clapping is markedly decreased. Patient scheduled for discharge today to around 10 or 10:30 this morning Review of Systems Except as stated in HPI: all other systems reviewed are Neg Objective Alert: Yes [place]: Person Mood: Calm Affect: Restricted Memory Intact: Comment (impaired) Hallucinations: Other (does not appear to be responding internally) Delusions: No Delusion Type: Other (Unable to assess) Suicidal: Ideation (Unable to assess) Homicidal: Ideation (Unable to assess) Insight/Judgment Very poor Labs Date/Time Procedure Status Source Growth 08/12/16 21:20 Urine Culture - Final Complete Urine Clean Catch Klebsiella Pneumoniae Vitals/IOs Vital Signs Date Time Temp Pulse Resp B/P Pulse Ox O2 Delivery O2 Flow Rate FiO2 08/15/16 05:29 97.6 62 18 123/57 97 Intake and Output 08/14/16 08/14/16 08/15/16 08:00 16:00 00:00 Intake Total 120 ml Balance 120 ml Assessment & Plan Problem List: (1) Dementia ICD Code: F03.90 (2) History of traumatic brain injury ICD Code: Z87.820 Assessment & Plan Estimated LOS: days patient continues confused and disorganized, globus behavioral issues. Also less sedated, somewhat more animated. to picker patient today for discharge Justification for Cont. Inpt. Patient to be discharged today to Discharge Planning Patient to be discharged today to follow-up [place] clinic and services in the home Request HC Surrog/Guard Advoc?: Yes Problem Qualifiers (1) Dementia: Qualified Code: F03.91 - Dementia with behavioral disturbance, unspecified dementia type Jordan Suárez MD Aug 15, 2016 09:46
== END 2016-08-15 10:35 | disposition home or self-care (01) | DRG 57 ==
LOC: NEPE 15:36 → NEDA 07-17 08:49 → H4EA 07-17 10:35 → H250 07-17 13:55
PROVIDERS: ADMIT Psychiatry & Neurology Psychiatry; ATTEND Psychiatry & Neurology Psychiatry
DX: G30.0 Alzheimer's disease with early onset (principal); N17.9 Acute kidney failure, unspecified; F02.81 Dementia in other diseases classified elsewhere, unspecified severity, with behavioral disturbance; N18.3 Chronic kidney disease, stage 3 (moderate); I12.9 Hypertensive chronic kidney disease with stage 1 through stage 4 chronic kidney disease, or unspecified chronic kidney disease; E03.9 Hypothyroidism, unspecified; K21.9 Gastro-esophageal reflux disease without esophagitis; F41.9 Anxiety disorder, unspecified; K44.9 Diaphragmatic hernia without obstruction or gangrene; G40.909 Epilepsy, unspecified, not intractable, without status epilepticus; R22.1 Localized swelling, mass and lump, neck; Z85.42 Personal history of malignant neoplasm of other parts of uterus; Z85.43 Personal history of malignant neoplasm of ovary; Z87.891 Personal history of nicotine dependence; Z87.820 Personal history of traumatic brain injury
CPT/HCPCS: 70450; 71010; 76536; 80048; 80053; 80156; 80307; 81001; 84443; 85025; 87086; 96361; 96365; 96366; 96375; J0744; J2060; J7040

== ENCOUNTER 2016-11-11 12:43 | Emergency (ER) | payer OTHER ==
[~2016-11-11] VITALS: Ht 185.4 cm; Wt 73.0 kg
[~2016-11-11 12:43] MED LIST changes: -CARB200T PO; +CIPR-9 PO; +GALA8TAB PO; +LEVO.15 PO; +LORA-474 PO; -MEMA1TAB2 PO; +NAME10TA PO; +OLAN5TAB PO; -TAMS0.4C4 PO; +TAMS5CAP PO; +TEGR200T PO; +TRAZ300T2 PO
[2016-11-11 13:00] VITALS: BP 116/78; PULSE 86; RESP 16; TEMP 98.5; O2SAT 98
[2016-11-11] MEDS ORDERED: CEPH-460 PO (13:50)
--- NOTE | 2016-11-11 13:50 | PD ---
HPI Chief Complaint: Skin Problem Time Seen by Provider: 13:03 Travel History International Travel<30 days: No Contact w/Intl Traveler<30days: No Traveled to known affect area: No History of Present Illness HPI Is a 61-year-old woman presents to the emergency department brought in by her family for concern for ulcerations on her heels. She is a history of dementia with progressive symptoms, as well as traumatic brain injury. She is minimally verbal, and mostly bedbound at this point. She apparently had some shuffling gait up until a couple months ago. She has she has some purulent blisters on the bottom of her heels with pressure wounds. One of them is a little bit eroded. Little bit of surrounding erythema. Family was worried that she may be developing infection. History Past Medical History Narrative Medical Alzheimer's type dementia Bipolar anxiety and depression History of ovarian and uterine cancer Hypertension Menopausal: Yes Social History Tobacco Use: No Allergies-Medications (Allergen,Severity, Reaction): Coded Allergies: coconut (Unverified Allergy, Severe, SWELLING OF THROAT, 10/23/16) Reported Meds & Prescriptions Reported Meds & Active Scripts Active Trazodone (Trazodone HCl) 300 Mg Tab 300 Mg PO HS Flomax (Tamsulosin HCl) 0.4 Mg Cap 0.4 Mg PO HS Olanzapine 5 Mg Tab 5 Mg PO DIRECTED 1 in a.m. 2 at 4 PM Namenda (Memantine) 10 Mg Tab 10 Mg PO BID Ativan (Lorazepam) 1 Mg Tab 0.5 Mg PO Q8HR PRN Synthroid (Levothyroxine Sodium) 150 Mcg Tab 150 Mcg PO DAILY@0600 Galantamine (Galantamine Hydrobromide) 8 Mg Tab 8 Mg PO 2 BID Tegretol (Carbamazepine) 200 Mg Tab 200 Mg PO DIRECTED 1 in a.m. 1-1/2 at bedtime Cipro (Ciprofloxacin HCl) 500 Mg Tab 500 Mg PO BID 7 Days Xanax (Alprazolam) 0.5 Mg Tab 0.5 Mg PO Q8H PRN Reported Trazodone (Trazodone HCl) 100 Mg Tab 200 Mg PO TID Olanzapine 10 Mg Tab 10 Mg PO HS Levothyroxine (Levothyroxine Sodium) 150 Mcg Tab 150 Mcg PO DAILY Galantamine (Galantamine Hydrobromide) 12 Mg Tab 16 Mg PO BID D3-1000 (Cholecalciferol) 1,000 Unit Cap Buspirone (Buspirone HCl) 30 Mg Tab 30 Mg PO BID Review of Systems Except as stated in HPI: all other systems reviewed are Neg Physical Exam Narrative GENERAL: 60 year-old woman with chronically ill appearance, increased muscle tone SKIN: Focused skin assessment warm/dry. HEAD: Atraumatic. Normocephalic. EYES: Pupils equal and round. No scleral icterus. No injection or drainage. ENT: No nasal bleeding or discharge. Mucous membranes pink and moist. NECK: Trachea midline. No JVD. CARDIOVASCULAR: Regular rate and rhythm. No murmur appreciated. RESPIRATORY: No accessory muscle use. Clear to auscultation. Breath sounds equal bilaterally. GASTROINTESTINAL: Abdomen soft, non-tender, nondistended. Hepatic and splenic margins not palpable. MUSCULOSKELETAL: No obvious deformities. Decreased muscle tone. She is about 3 cm blisters on the bottom of both ankles from pressure wounds. On the left has a piece of missing skin that been rubbed off. There is minimal surrounding erythema. NEUROLOGICAL: Awake and alert. He moans and labs, doesn't really talk much. No obvious cranial nerve deficits. Motor grossly within normal limits. Increased muscle tone. Normal speech. Data Data Last Documented VS Vital Signs Date Time Temp Pulse Resp B/P (MAP) Pulse Ox O2 Delivery O2 Flow Rate FiO2 11/11/16 13:22 16 11/11/16 13:00 98.5 86 116/78 (91) 98 Orders Orders Complete Blood Count With Diff (11/11/16 13:03) Comprehensive Metabolic Panel (11/11/16 13:03) Wound Culture And Gram Stain (11/11/16 13:03) MDM Medical Decision Making Medical Screen Exam Complete: Yes Emergency Medical Condition: Yes Differential Diagnosis Skin wound, infection, pressure ulcers, other Narrative Course Medical decision-making new para 58 year-old woman with pressure ulcers on her wounds. Family need a flutter heels take pressure off. We could consider cushions as well. She has home health coming up to the house already. Case management spoke to them. [facility] We can try to add wound care as well. We'll place her on some antibiotics and recommend outpatient follow-up. Diagnosis Primary Impression: Pressure ulcer Patient Instructions: General Instructions Additional Instructions: Float heels as discussed to take pressure off of the heels. Use foam cushions as directed. Keep wound clean and dry. Follow-up with home health for wound care. Med/Other Pt SpecificInfo: Prescription(s) given Scripts Cephalexin (Keflex) 500 Mg Capsule 500 MG PO Q8H for Infection for 7 Days, CAP 0 Refills Prov: Lars Rudolph MD 11/11/16 Disposition: 01 DISCHARGE HOME Condition: Stable Lars Rudolph MD Nov 11, 2016 13:50
--- NOTE | 2016-11-11 13:51 | HHI.FF ---
Face to Face Verification Diagnosis: (1) Delirium (2) Dementia (3) History of traumatic brain injury (4) Pressure ulcer Home Health Nursing Order: Medical education Wound care and dressing changes I have seen patient Kati Simeon on 11/11/16. My clinical findings support the need for the requested home health care services because: Ltd mobility - disease progression Deconditioned w/ increased weakness Limited ability to care for self High risk of falls I certify that my clinical findings support that this patient is homebound because: Impaired cognitive ability/safety Unsteady gait/balance [id number] bed/chair Lars Rudolph MD Nov 11, 2016 13:51
[2016-11-11 13:54] LABS: AUTOMATED NEUTROPHIL # 6.3 TH/MM3 (1.8-7.7); BASOPHIL # 0.1 TH/MM3 (0-0.2); BASOPHIL % 1.1 % (0.0-2.0); EOSINOPHIL # 0.1 TH/MM3 (0-0.4); HEMATOCRIT 34.1 % (35.0-46.0); HEMO FLAGS DIFF FINAL; LYMPH % 16.1 % (9.0-44.0); LYMPHOCYTE # 1.4 TH/MM3 (1.0-4.8); MEAN CELL VOLUME 88.9 FL (80.0-100.0); MEAN CORPUSCULAR HEMOGLOBIN 28.9 PG (27.0-34.0); MEAN CORPUSCULAR HGB CONC 32.5 % (32.0-36.0); MONO % 7.4 % (0.0-8.0); NEUT % 74.4 % (16.0-70.0); PLATELET COUNT 266 TH/MM3 (150-450); RED BLOOD COUNT 3.84 MIL/MM3 (4.00-5.30); RED CELL DISTRIBUTION WIDTH 13.3 % (11.6-17.2); WHITE BLOOD COUNT 8.5 TH/MM3 (4.0-11.0)
[2016-11-11 14:21] LABS: ANION GAP 9 MEQ/L (5-15); AST (GOT) 29 U/L (15-37); BICARBONATE 24.5 MEQ/L (21.0-32.0); BLOOD UREA NITROGEN 11 MG/DL (7-18); CHLORIDE 108 MEQ/L (98-107); GLOMERULAR FILTRATION RATE 61 ML/MIN (>89); POTASSIUM 3.4 MEQ/L (3.5-5.1); SODIUM (NA) 141 MEQ/L (136-145)
[2016-11-11 14:22] LABS: ALT (GPT) 52 U/L (10-53)
[2016-11-11 14:24] LABS: ALKALINE PHOSPHATASE 101 U/L (45-117); TOTAL BILIRUBIN ADULT 0.5 MG/DL (0.2-1.0)
== END 2016-11-11 15:02 | disposition home or self-care (01) ==
LOC: NEPD 12:43
DX: L89.619 Pressure ulcer of right heel, unspecified stage (principal); L89.629 Pressure ulcer of left heel, unspecified stage; I10 Essential (primary) hypertension; G30.9 Alzheimer's disease, unspecified; F02.80 Dementia in other diseases classified elsewhere, unspecified severity, without behavioral disturbance, psychotic disturbance, mood disturbance, and anxiety; Z86.59 Personal history of other mental and behavioral disorders; Z85.42 Personal history of malignant neoplasm of other parts of uterus; Z85.43 Personal history of malignant neoplasm of ovary
CPT/HCPCS: 80053; 85025; 86403; 87070; 87205; 99283